=== PATIENT | female | born 1975 | race Caucasian/White ===

== ENCOUNTER 2016-03-26 16:44 | Emergency (ER) ==
[2016-03-26 16:47] VITALS: BP 149/106; TEMP 97.6; BMI 29.8
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
[2016-03-26] MEDS ORDERED: LOPRESSOR PO STA (17:05)
[2016-03-26 17:11] LABS: BASOPHILS % (AUTO) 0.4 % (0.0-3.0); EOSINOPHILS # (AUTO) 0.2 K/ul (0.0-0.7); EOSINOPHILS % (AUTO) 2.1 % (0.0-7.0); HEMATOCRIT 38.6 % (37.0-47.0); HEMOGLOBIN 13.3 g/dl (12.0-16.0); IMMATURE GRANULOCYTE % (AUTO) 0.2 % (0.0-5.0); LYMPHOCYTES # (AUTO) 3.6 K/uL (0.60-3.4); LYMPHOCYTES % (AUTO) 39.6 (10.0-50.0); MEAN CORPUSCULAR HEMOGLOBIN 29.2 pg (27.0-31.0); MEAN CORPUSCULAR HGB CONC 34.5 (31.8-35.4); MEAN CORPUSCULAR VOLUME 84.8 fl (81.0-99.0); MONOCYTES # (AUTO) 0.7 K/uL (0.4-2.0); MONOCYTES % (AUTO) 8.1 (0-10); NEUTROPHILS # (AUTO) 4.5 K/ul (2.0-6.9); NEUTROPHILS % (AUTO) 49.6; PLATELET COUNT 293 10^3/uL (140-440); RED BLOOD COUNT 4.55 10^6/ul (4.20-5.40); WHITE BLOOD COUNT 9.02 K/ul (4.6-10.2)
[2016-03-26 17:30] LABS: PARTIAL THROMBOPLASTIN TIME 39.1 SEC (23.9-40.0)
[2016-03-26 17:32] LABS: PROTHROMBIN TIME 32.6 SEC (9.3-11.0)
== END 2016-03-26 19:13 | disposition home or self-care (01) ==
LOC: EDSEX → ED 16:44
DX: R04.0 Epistaxis (principal); R79.1 Abnormal coagulation profile; Z79.01 Long term (current) use of anticoagulants; Z79.899 Other long term (current) drug therapy
CPT/HCPCS: 36415; 85025; 85610; 85730; 99283

== ENCOUNTER 2016-04-17 15:24 | Outpatient (CLI) ==
[2016-04-17 15:58] LABS: BASOPHILS % (AUTO) 0.4 % (0.0-3.0); EOSINOPHILS # (AUTO) 0.2 K/ul (0.0-0.7); EOSINOPHILS % (AUTO) 2.4 % (0.0-7.0); HEMOGLOBIN 13.8 g/dl (12.0-16.0); IMMATURE GRANULOCYTE % (AUTO) 0.1 % (0.0-5.0); LYMPHOCYTES # (AUTO) 2.3 K/uL (0.60-3.4); LYMPHOCYTES % (AUTO) 30.1 (10.0-50.0); MEAN CORPUSCULAR HEMOGLOBIN 29.8 pg (27.0-31.0); MEAN CORPUSCULAR HGB CONC 34.5 (31.8-35.4); MEAN CORPUSCULAR VOLUME 86.4 fl (81.0-99.0); MONOCYTES # (AUTO) 0.7 K/uL (0.4-2.0); MONOCYTES % (AUTO) 8.8 (0-10); NEUTROPHILS # (AUTO) 4.4 K/ul (2.0-6.9); NEUTROPHILS % (AUTO) 58.2; PLATELET COUNT 290 10^3/uL (140-440); RED BLOOD COUNT 4.63 10^6/ul (4.20-5.40); WHITE BLOOD COUNT 7.53 K/ul (4.6-10.2)
[2016-04-17 16:07] LABS: BILIRUBIN,URINE Negative (NEGATIVE); KETONES,URINE Negative (NEGATIVE); LEUKOCYTE ESTERASE ,URINE Trace (NEGATIVE); NITRITE,URINE Negative (NEGATIVE); PROTEIN,URINE Negative (NEGATIVE); URINE, BLOOD Trace-lysed (NEGATIVE)
[2016-04-17 16:15] LABS: FLU INTERNAL QC INTERNAL QC VALID; RAPID FLU A NEGATIVE (NEGATIVE); RAPID FLU B NEGATIVE (NEGATIVE)
[2016-04-17 16:17] LABS: ALBUMIN 4.2 g/dL (3.4-5.0); ALBUMIN/GLOBULIN RATIO 1.4; BILIRUBIN,TOTAL 0.54 mg/dL (0.00-1.20); BUN/CREATININE RATIO 8.53; CALCIUM 9.3 mg/dL (8.2-10.2); CREATININE 0.82 mg/dL (0.60-1.30); TOTAL PROTEIN 7.2 g/dL (6.4-8.2)
[2016-04-17 16:19] LABS: ADD URINE MICROSCOPIC YES
[2016-04-17 16:23] LABS: BACTERIA,URINE 1+ (NOT PRESENT)
== END 2016-04-17 15:25 | disposition home or self-care (01) ==
LOC: LAB 15:24
PROVIDERS: ATTEND Emergency Medicine
DX: I10 Essential (primary) hypertension (principal); R56.9 Unspecified convulsions; R04.0 Epistaxis
CPT/HCPCS: 36415; 80053; 81001; 85025; 87086; 87804

== ENCOUNTER 2016-06-22 16:32 | Emergency (ER) ==
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
[2016-06-22 17:09] VITALS: BP 122/79; TEMP 97.2; BMI 29.0
== END 2016-06-22 17:18 | disposition home or self-care (01) ==
LOC: ED 16:32
DX: S50.12XA Contusion of left forearm, initial encounter (principal); W20.8XXA Other cause of strike by thrown, projected or falling object, initial encounter
CPT/HCPCS: 99282

== ENCOUNTER 2017-06-10 07:36 | Outpatient (CLI) | END 2017-06-10 07:37 | disposition short-term general hospital (02) | LOC: AMBL 07:36 | PROVIDERS: ATTEND Internal Medicine | DX: R07.9 Chest pain, unspecified (principal); M79.605 Pain in left leg; M79.602 Pain in left arm; R00.0 Tachycardia, unspecified; Z79.01 Long term (current) use of anticoagulants; Z86.73 Personal history of transient ischemic attack (TIA), and cerebral infarction without residual deficits; Z86.79 Personal history of other diseases of the circulatory system; M54.9 Dorsalgia, unspecified; G89.29 Other chronic pain ==

== ENCOUNTER 2017-08-07 11:07 | Outpatient (CLI) ==
--- NOTE | 2017-08-07 12:04 | MAMMO ---
EXAM: Bilateral digital screening mammogram (2-D and 3-D) History: Baseline screening Findings: MLO and CC views of bilateral breasts demonstrate scattered fibroglandular breast parenchy ma. CAD was reviewed by the radiologist. Tomosynthesis was performed. There are benign bilateral b reast calcifications. There are no dominant masses, no suspicious microcalcifications and no archite ctural distortions Impression: Benign mammogram. Recommend followup routine screening mammography in 1 year. BIRADS 2
== END 2017-08-07 11:08 | disposition home or self-care (01) ==
LOC: RAD 11:07
PROVIDERS: ATTEND Internal Medicine
DX: Z12.31 Encounter for screening mammogram for malignant neoplasm of breast (principal); I10 Essential (primary) hypertension; E03.9 Hypothyroidism, unspecified; E78.5 Hyperlipidemia, unspecified; R56.9 Unspecified convulsions
CPT/HCPCS: 36415; 77067; 80053; 80061; 83036; 84439; 84443; 85025; 85610

== ENCOUNTER 2017-09-01 15:36 | Outpatient (CLI) ==
--- NOTE | 2017-09-02 08:11 | DI ---
Exam: Three views of the lumbar spine. Comparison: None available. Reason for exam: Back pain after fall. FINDINGS: No acute fracture or listhesis. The vertebral body and intervertebral body disc space hei ghts are well maintained. There is mild degenerative disease with osteophyte formation and facet hyp ertrophy. Impression: No acute fracture or listhesis in the lumbar spine with mild degenerative disease.
== END 2017-09-01 15:37 | disposition home or self-care (01) ==
LOC: RAD 15:36
PROVIDERS: ATTEND Internal Medicine
DX: M54.9 Dorsalgia, unspecified (principal); W19.XXXA Unspecified fall, initial encounter; I10 Essential (primary) hypertension; R56.9 Unspecified convulsions; E03.9 Hypothyroidism, unspecified; E78.5 Hyperlipidemia, unspecified
CPT/HCPCS: 36415; 80053; 80061; 83036; 84439; 84443; 85025; 85610

== ENCOUNTER 2018-01-01 20:05 | Emergency (ER) ==
[2018-01-01 20:10] VITALS: BP 172/102; TEMP 98.8; BMI 32.3
--- NOTE | 2018-01-01 21:43 | CT ---
EXAM: CT chest with contrast HISTORY: Supraclavicular mass TECHNIQUE: Multi-slice transaxial helical with coronal and sagittal reformed images CONTRAST: Intravenous COMPARISON: None FINDINGS: The aorta has normal caliber. The heart size is normal. An intra-atrial septal closure de vice is in place. No lymphadenopathy is appreciated in the thorax. No pericardial or pleural effusi ons are evident. The lungs are clear. The soft tissue nodule in the right lower lobe medially is 7. 6 x 7.6 mm on transaxial image 37. No other nodules or masses are appreciated. The lungs are free o f acute airspace or interstitial opacities. The hepatic attenuation is diffusely low relative to the spleen. The solid abdominal organs are othe rwise normal in their visualized portions of the upper abdomen. No supraclavicular masses are apprec iated. The bones are free of suspicious osteolytic or osteoblastic lesions. ACDF has been performed in the cervical spine. IMPRESSION: 1. No CT correlate for the patient's supraclavicular mass. 2. No acute cardiopulmonary disease. 3. Solid nodule in the right lower lobe measuring 7.6 x 7.6 mm. Please see followup recommendations below. 4. Intra-atrial septal closure device. 5. Diffuse hepatic steatosis. Comment: [employer] Society Recommendations on Incidental Solid Pulmonary Nodule Follow-up: Low risk patient: (no history of smoking, cancer, or other known risk factors) < 6mm - no follow-up needed > 6-8mm - inital at 6-12 months, then 18-24 months if no change > 8mm - Consider CT, PET/CT, or biopsy at 3 months High risk patient: (history of smoking or other risk factors) < 6mm - optional CT at 12 months if suspicious morophology or upper lobe location > 6-8mm - initial CT at 6-12 months, then CT at 18-24 months > 8mm - same as low risk
--- NOTE | 2018-01-01 21:58 | CT ---
EXAM: CT neck with contrast HISTORY: Right neck mass, supraclavicular region TECHNIQUE: Multi-slice transaxial helical images of the neck are acquired using a standard protocol following the administration of intravenous contrast. CONTRAST: Intravenous COMPARISON: None FINDINGS: The visible intracranial structures are normal. The paranasal sinuses, middle ears, and ma stoid air cells are clear. The mucosa of the aerodigestive tract is symmetric. The visible vascular structures enhance normally without evidence of hemodynamically significant stenosis. The parotid, submandibular, and thyroid glands have normal attenuation. There is prominent at the cervical weekl y regions bilaterally. There is a small lymph node in the right supraclavicular region measuring 5.2 mm. No suspicious masses are appreciated. The lung apices are free of acute airspace or interstitial opacities. No suspicious osteolytic or os teoblastic lesions are detected. ACDF has been performed in the cervical spine. There is suggestion of prior corpectomy at C6. IMPRESSION: 1. Prominent fat and supraclavicular regions. Small 5.5 mm lymph node in the right in the supraclav icular region. No suspicious masses. 2. Otherwise normal. 3. Previous ACDF and C6 corpectomy.
--- NOTE | 2018-01-01 22:06 | ED.PDOC ---
General ED Provider: Dr. HARRISON SILVEIRA-ER Chief Complaint: Neck Pain Non-Injury Stated Complaint: monae got this place in my neck Time Seen by Physician: 20:10 Mode of Arrival: Walk-In Information Source: Patient Exam Limitations: No limitations Primary Care Provider: GISELA TEMPLETON Nursing and Triage Documentation Reviewed and Agree: Yes Does patient meet sepsis criteria?: No System Inflammatory Response Syndrome: Not Applicable Sepsis Protocol: For patient's 13 years and over: Temp is 96.8 and below OR 101 and greater Pulse >90 BPM Resp >20/minute Acutely Altered Mental Status Are patient's symptoms suggestive of a new infection, such as: -Pneumonia -Skin, Soft Tissue -Endocarditis -UTI -Bone, Joint Infection -Implantable Device -Acute Abdominal Infection -Wound Infection -Meningitis -Blood Stream Catheter Infection -Unknown EENT Complaint Exam - Throat Complaint/Exam Onset/Duration: today Symptoms Are: Still present Initial Severity: Mild Current Severity: Mild Alleviating: Reports: None Associated Signs and Symptoms: Denies: Fever, Dysphagia, Drooling, Foreign body sensation, Chills, Cough, Wheezing, Hoarseness, Sinus discomfort, Nasal congestion, Difficulty breathing, Lethargy, Irritability, Decreased activity, Vomiting, Diarrhea, Decreased hearing, Ear drainage Uvula Midline: Yes Alda-tonsillar Fluctuence: No Scarlatinaform Rash Present: No Stridor Present: No Sinus Tenderness Present: No Tonsillar Hypertrophy Present: No Tonsillar Exudate Present: No Alda-tonsillar Swelling Present: No Adenopathy Present: No Splenomegaly Present: No Differential Diagnoses: Other Review of Systems - Review Of Systems Constitutional: Reports: No symptoms Eyes: Reports: No symptoms Ears, Nose, Mouth, Throat: Reports: No symptoms Respiratory: Reports: No symptoms Cardiac: Reports: No symptoms GI: Reports: No symptoms : Reports: No symptoms Musculoskeletal: Reports: No symptoms Skin: Reports: No symptoms Neurological: Reports: No symptoms Endocrine: Reports: No symptoms Hematologic/Lymphatic: Reports: No symptoms All Other Systems: Reviewed and Negative Past Medical History - Past Medical History Previously Healthy: Yes Endocrine: Reports: Hypothyroid, Dyslipidemia Cardiovascular: Reports: Hypertension, CHF Respiratory: Reports: None Hematological: Reports: Anemia, Other (factor 5 leiden factor 8) Gastrointestinal: Reports: GERD Genitourinary: Reports: None Neuro/Psych: Reports: TIA, CVA (2011), Seizure, Depression Musculoskeletal: Reports: Arthritis Cancer: Reports: None Last Menstrual Period: HYSTERECTOMY Other Pertinent Past Medical History: SVT ablation, PFO closure - Surgical History General Surgical History: Reports: Hysterectomy, , Appendectomy, Cholecystectomy, Tonsillectomy, Adenoidectomy, Orthopedic (cervical fusion x 2) , Unknown - Family History Family History: Reports: Unknown - Social History Smoking Status: Never smoker Hx Substance Use: No Alcohol Screening: None - Immunizations Tetanus Shot up to Date: Yes Physical Exam - Physical Exam Appearance: Well-appearing, No pain distress, Well-nourished Eyes: GIUSEPPE, EOMI, Conjunctiva clear ENT: Ears normal, Nose normal, Oropharynx normal Neck: Supple (note fatty prominence near supraclavicular area concerning for the patient) Respiratory: Airway patent, Breath sounds clear, Breath sounds equal, Respirations nonlabored Cardiovascular: RRR GI/: Soft Musculoskeletal: Normal strength Skin: Warm, Dry, Normal color Neurological: Sensation intact, Motor intact, Reflexes intact, Cranial nerves intact, Alert, Oriented Psychiatric: Affect appropriate, Mood appropriate Interpretation - Radiology Interpretation Radiology Interpretation By: Radiologist Exam Interpreted: CT Scan Critical Care Note - Critical Care Note Total Time (mins): 0 Course - Course Hematology/Chemistry: 01/01/18 20:37 01/01/18 20:37 Orders, Labs, Meds: Lab Review 01/01/18 01/01/18 01/01/18 20:37 20:37 20:37 WBC 8.72 RBC 4.79 Hgb 13.8 Hct 40.2 MCV 83.9 MCH 28.8 MCHC 34.3 RDW Coeff of Sharee 13.0 Plt Count 285 Immature Gran % (Auto) 0.2 Neut % (Auto) 66.4 Lymph % (Auto) 24.4 [place] % (Auto) 7.9 Eos % (Auto) 0.6 Baso % (Auto) 0.5 Immature Gran # (Auto) 0.0 Neut # (Auto) 5.8 Lymph # (Auto) 2.1 [place] # (Auto) 0.7 Eos # (Auto) 0.1 Baso # (Auto) 0.0 Sodium 139.1 Potassium 3.92 Chloride 102.5 Carbon Dioxide 28.2 Anion Gap 12.32 BUN 8.5 Creatinine 0.83 Estimated GFR (MDRD) 76.00 BUN/Creatinine Ratio 10.24 Glucose 167.3 H Calcium 9.41 Total Bilirubin 0.34 AST 61.4 H ALT 59.0 H Alkaline Phosphatase 89.5 Total Protein 7.83 Albumin 4.82 Globulin 3.01 Albumin/Globulin Ratio 1.60 TSH 0.957 Orders Category Date Time Status NPO REMINDER: IMAGING ONCE CARE 01/01/18 20:23 Completed IV [ED IV/MEDIPORT/POWERPORT] .ONCE EMERGENCY 01/01/18 20:23 Active CBC W/ AUTO DIFF Stat LAB 01/01/18 20:37 Completed COMPREHENSIVE METABOLIC PANEL Stat LAB 01/01/18 20:37 Completed TSH [THYROID STIMULATING HORMONE] Stat LAB 01/01/18 20:37 Completed 0.9 % Sodium Chloride [Saline Flush] MEDS 01/01/18 20:23 Ordered 1 syr IVF PRN PRN CT CHEST W/CONTRAST Stat RADS 01/01/18 20:[address] SOFT TISSUE NECK W/CONTRAST Stat RADS 01/01/18 20:23 Completed Medications Generic Name Dose Route Start Last Admin Trade Name Freq PRN Reason Stop Dose Admin Sodium Chloride 1 syr 01/01/18 20:23 Saline Flush IVF PRN PRN To flush IV Vital Signs: Temp Pulse Resp BP Pulse Ox 01/01/18 20:06 98.8 F 85 18 172/102 H 95 Departure - Departure Time of Disposition: 22:06 Disposition: HOME SELF-CARE Discharge Problem: Supraclavicular fossa fullness, Lung nodule Instructions: Soft Tissue Mass (ED) Condition: Good Pt referred to PMD for follow-up: Yes IPMP verified?: No Additional Instructions: talk with dr templeton regarding lung nodule Allergies/Adverse Reactions: Allergies ciprofloxacin [From Cipro] Adverse Reaction (Verified 01/01/18 20:10) hydrocodone Adverse Reaction (Verified 01/01/18 20:10) meperidine HCl [From Demerol] Adverse Reaction (Verified 01/01/18 20:10) oxycodone Adverse Reaction (Verified 01/01/18 20:10) Home Medications: Ambulatory Orders Atorvastatin Calcium [Lipitor] 20 mg PO DAILY 05/03/15 Levothyroxine Sodium [Synthroid] 88 mcg PO DAILY 05/03/15 Warfarin Sodium 5 mg PO QPM 05/03/15 Metoprolol Tartrate [Lopressor] 50 mg PO BID 12/07/15 Disposition Discussed With: Patient, Family
== END 2018-01-01 22:17 | disposition home or self-care (01) ==
LOC: ED 20:05
DX: R22.1 Localized swelling, mass and lump, neck (principal); R91.1 Solitary pulmonary nodule; I10 Essential (primary) hypertension; E03.9 Hypothyroidism, unspecified; E78.5 Hyperlipidemia, unspecified; D68.51 Activated protein C resistance; Z86.73 Personal history of transient ischemic attack (TIA), and cerebral infarction without residual deficits; Z79.01 Long term (current) use of anticoagulants; Z79.899 Other long term (current) drug therapy
CPT/HCPCS: 36415; 80053; 84443; 85025; 99283

== ENCOUNTER 2018-01-29 09:45 | Outpatient (CLI) ==
--- NOTE | 2018-01-29 10:31 | US ---
EXAM: Ultrasound chest wall/upper back. HISTORY: Right supraclavicular mass. FINDINGS: Henson-scale ultrasound, color Doppler imaging was performed in the region of interest descr ibed as the right supraclavicular area. No regional fluid collections or masses were identified. No calcifications. The visualized vessels appeared grossly normal IMPRESSION: 1. No sonographic abnormalities identified in the region of interest.
== END 2018-01-29 09:46 | disposition home or self-care (01) ==
LOC: RAD 09:45
PROVIDERS: ATTEND Internal Medicine
DX: R22.2 Localized swelling, mass and lump, trunk (principal)

== ENCOUNTER 2018-03-25 14:28 | Inpatient (IN) ==
--- NOTE | 2018-03-25 15:09 | ED.PDOC ---
General ED Provider: Dr. HARRISON THOMAS Chief Complaint: Palpitations Stated Complaint: Episodes of accelerated heart rate, chest palpitation , dyspnea. Having lt calf pain. Hx prev CVA Time Seen by Physician: 14:40 Mode of Arrival: Walk-In Information Source: Patient Primary Care Provider: GISELA TEMPLETON Nursing and Triage Documentation Reviewed and Agree: Yes Does patient meet sepsis criteria?: No System Inflammatory Response Syndrome: Pulse >90 BPM Sepsis Protocol: For patient's 13 years and over: Temp is 96.8 and below OR 101 and greater Pulse >90 BPM Resp >20/minute Acutely Altered Mental Status Are patient's symptoms suggestive of a new infection, such as: -Pneumonia -Skin, Soft Tissue -Endocarditis -UTI -Bone, Joint Infection -Implantable Device -Acute Abdominal Infection -Wound Infection -Meningitis -Blood Stream Catheter Infection -Unknown Cardiovascular Complaint Exam - Palpitations Complaint/Exam Onset/Duration: 24hrs Symptoms Are: Still present Timing: Intermittent Initial Severity: Moderate Current Severity: Moderate Character: Reports: Fast, Pounding Aggravating: Reports: Exertion, Position Alleviating: Reports: Rest Associated Signs and Symptoms: Reports: Lightheadedness, Dizziness, Syncope ( near syncope), Diaphoresis Related History: Similar episode Related Surgical History: Reports: None (prev ablation tx) Pulmonary Embolism Risk Factors: Reports: None Atrial Fibrillation Risk Factors: Reports: None Thyroid Exam: Normal Differential Diagnoses: Paroxysmal SVT Review of Systems - Review Of Systems Constitutional: Reports: Weakness Eyes: Reports: No symptoms Ears, Nose, Mouth, Throat: Reports: No symptoms Respiratory: Reports: Short of air (exertional) Cardiac: Reports: Chest pain, Palpitations, Syncope GI: Reports: No symptoms : Reports: No symptoms Musculoskeletal: Reports: No symptoms Skin: Reports: No symptoms Neurological: Reports: No symptoms Endocrine: Reports: No symptoms Hematologic/Lymphatic: Reports: No symptoms All Other Systems: Reviewed and Negative Past Medical History - Past Medical History Previously Healthy: Yes Endocrine: Reports: Hypothyroid, Dyslipidemia Cardiovascular: Reports: Hypertension, CHF Respiratory: Reports: None Hematological: Reports: Anemia, Other (factor 5 leiden factor 8) Gastrointestinal: Reports: GERD Genitourinary: Reports: None Neuro/Psych: Reports: TIA, CVA (2010), Seizure, Depression Musculoskeletal: Reports: Arthritis Cancer: Reports: None Last Menstrual Period: HYSTERECTOMY Other Pertinent Past Medical History: SVT ablation, PFO closure - Surgical History General Surgical History: Reports: Hysterectomy, , Appendectomy, Cholecystectomy, Tonsillectomy, Adenoidectomy, Orthopedic (cervical fusion x 2) , Unknown - Family History Family History: Reports: Unknown - Social History Smoking Status: Never smoker Hx Substance Use: No Alcohol Screening: None - Immunizations Tetanus Shot up to Date: No Physical Exam - Physical Exam Appearance: Ill-appearing, No pain distress, Well-nourished, Obese Ill-appearing: Moderate Pain Distress: None Eyes: GIUSEPPE, EOMI, Conjunctiva clear ENT: Ears normal, Nose normal, Oropharynx normal Respiratory: Airway patent, Breath sounds clear, Breath sounds equal, Respirations nonlabored Cardiovascular: RRR, Pulses normal, No rub, No murmur GI/: Soft, Nontender, No masses, Bowel sounds normal, No Organomegaly Musculoskeletal: Normal strength, ROM intact, No edema, No calf tenderness Skin: Warm, Dry, Normal color Neurological: Sensation intact, Motor intact, Reflexes intact, Cranial nerves intact, Alert, Oriented Psychiatric: Affect appropriate, Mood appropriate Interpretation - Radiology Interpretation Radiology Interpretation By: Radiologist Radiology Results: Negative (doppler flow results reviewed and were negative for dvt) Exam Interpreted: CXR (reviewed cxr-neg acute findings) Re-Evaluation - Re-Evaluation Time of Re-Evaluation: 17:00 Status: Improved Vital Signs Stable: Yes Appearance: NAD Lungs: Clear Skin: Warm and Dry Neuro: Alert and Oriented X3 CV: RRR Critical Care Note - Critical Care Note Total Time (mins): 120 Course - Course Hematology/Chemistry: 03/25/18 15:20 03/25/18 15:20 Orders, Labs, Meds: Lab Review 03/25/18 03/25/18 03/25/18 15:20 15:20 15:20 WBC 6.58 RBC 5.01 Hgb 14.1 Hct 41.9 MCV 83.6 MCH 28.1 MCHC 33.7 RDW Coeff of Sharee 13.4 Plt Count 277 Immature Gran % (Auto) 0.3 Neut % (Auto) 54.2 Lymph % (Auto) 33.9 [place] % (Auto) 9.3 Eos % (Auto) 1.8 Baso % (Auto) 0.5 Immature Gran # (Auto) 0.0 Neut # (Auto) 3.6 Lymph # (Auto) 2.2 [place] # (Auto) 0.6 Eos # (Auto) 0.1 Baso # (Auto) 0.0 PT INR D-Dimer (Manual) 275.09 Sodium 139.5 Potassium 3.44 L Chloride 103.7 Carbon Dioxide 26.3 Anion Gap 12.94 BUN 4.5 L Creatinine 0.67 Estimated GFR (MDRD) 97.00 BUN/Creatinine Ratio 6.71 Glucose 96.3 Calcium 9.63 Magnesium 1.89 Total Bilirubin 1.08 AST 46.6 H ALT 41.7 H Alkaline Phosphatase 107.1 Total Creatine Kinase 141.2 H CK-MB (CK-2) 0.703 CK-MB (CK-2) % 0.4900 Troponin I 0.013 Total Protein 7.85 Albumin 4.81 Globulin 3.04 Albumin/Globulin Ratio 1.58 TSH Urine Color Urine Clarity Urine pH Ur Specific [place] Urine Protein Urine Glucose (UA) Urine Ketones Urine Blood Urine Nitrite Urine Bilirubin Urine Urobilinogen Ur Leukocyte Esterase Urine Microscopic RBC Ur Squamous Epith Cells Urine Opiates Screen Ur Oxycodone Screen Urine Methadone Screen Ur Propoxyphene Screen Ur Barbiturates Screen U Tricyclic Antidepress Ur Phencyclidine Scrn Ur Amphetamine Screen U Methamphetamines Scrn U Benzodiazepines Scrn Urine Cocaine Screen U Cannabinoids Screen 03/25/18 03/25/18 03/25/18 15:20 15:20 15:59 WBC RBC Hgb Hct MCV MCH MCHC RDW Coeff of Sharee Plt Count Immature Gran % (Auto) Neut % (Auto) Lymph % (Auto) [place] % (Auto) Eos % (Auto) Baso % (Auto) Immature Gran # (Auto) Neut # (Auto) Lymph # (Auto) [place] # (Auto) Eos # (Auto) Baso # (Auto) PT 13.0 H INR 1.31 D-Dimer (Manual) Sodium Potassium Chloride Carbon Dioxide Anion Gap BUN Creatinine Estimated GFR (MDRD) BUN/Creatinine Ratio Glucose Calcium Magnesium Total Bilirubin AST ALT Alkaline Phosphatase Total Creatine Kinase CK-MB (CK-2) CK-MB (CK-2) % Troponin I Total Protein Albumin Globulin Albumin/Globulin Ratio TSH 0.851 Urine Color Urine Clarity Urine pH Ur Specific [place] Urine Protein Urine Glucose (UA) Urine Ketones Urine Blood Urine Nitrite Urine Bilirubin Urine Urobilinogen Ur Leukocyte Esterase Urine Microscopic RBC Ur Squamous Epith Cells Urine Opiates Screen Negative Ur Oxycodone Screen Negative Urine Methadone Screen Negative Ur Propoxyphene Screen Negative Ur Barbiturates Screen Negative U Tricyclic Antidepress Negative Ur Phencyclidine Scrn Negative Ur Amphetamine Screen Negative U Methamphetamines Scrn Negative U Benzodiazepines Scrn Negative Urine Cocaine Screen Negative U Cannabinoids Screen Negative 03/25/18 15:59 WBC RBC Hgb Hct MCV MCH MCHC RDW Coeff of Sharee Plt Count Immature Gran % (Auto) Neut % (Auto) Lymph % (Auto) [place] % (Auto) Eos % (Auto) Baso % (Auto) Immature Gran # (Auto) Neut # (Auto) Lymph # (Auto) [place] # (Auto) Eos # (Auto) Baso # (Auto) PT INR D-Dimer (Manual) Sodium Potassium Chloride Carbon Dioxide Anion Gap BUN Creatinine Estimated GFR (MDRD) BUN/Creatinine Ratio Glucose Calcium Magnesium Total Bilirubin AST ALT Alkaline Phosphatase Total Creatine Kinase CK-MB (CK-2) CK-MB (CK-2) % Troponin I Total Protein Albumin Globulin Albumin/Globulin Ratio TSH Urine Color Yellow Urine Clarity Clear Urine pH 7.0 Ur Specific [place] 1.010 Urine Protein Negative Urine Glucose (UA) Negative Urine Ketones Negative Urine Blood Trace-intact Urine Nitrite Negative Urine Bilirubin Negative Urine Urobilinogen 0.2 Ur Leukocyte Esterase Negative Urine Microscopic RBC 0-2 Ur Squamous Epith Cells 2-5 Urine Opiates Screen Ur Oxycodone Screen Urine Methadone Screen Ur Propoxyphene Screen Ur Barbiturates Screen U Tricyclic Antidepress Ur Phencyclidine Scrn Ur Amphetamine Screen U Methamphetamines Scrn U Benzodiazepines Scrn Urine Cocaine Screen U Cannabinoids Screen Orders Category Date Time Status EKG-(ED ONLY) Stat CARDIO 03/25/18 15:04 Completed IV [ED IV/MEDIPORT/POWERPORT] .ONCE EMERGENCY 03/25/18 15:04 Active CBC W/ AUTO DIFF Stat LAB 03/25/18 15:20 Completed CMP [COMPREHENSIVE METABOLIC PANEL] Stat LAB 03/25/18 15:20 Completed CPK [CREATINE KINASE] Stat LAB 03/25/18 15:20 Completed D-DIMER Stat LAB 03/25/18 15:20 Completed MAGNESIUM Stat LAB 03/25/18 15:20 Completed PT WITH INR Stat LAB 03/25/18 15:20 Completed TROPONIN I Stat LAB 03/25/18 15:20 Completed TSH [THYROID STIMULATING HORMONE] Stat LAB 03/25/18 15:20 Completed UA [URINALYSIS C & S IF INDICATED] Stat LAB 03/25/18 15:59 Completed URINE DRUG SCREEN (RAPID FOR ED) [DRUG SCREEN, URINE, LAB 03/25/18 15:59 Completed RAPID] Stat 0.9 % Sodium Chloride [Saline Flush] MEDS 03/25/18 15:04 Active 1 syr IVF PRN PRN CHEST, 2 VIEWS PA & LAT Stat RADS 03/25/18 15:05 Completed U/S VENOUS SCAN LT LEG Stat RADS 03/25/18 15:06 Completed Medications Generic Name Dose Route Start Last Admin Trade Name Freq PRN Reason Stop Dose Admin Sodium Chloride 1 syr 03/25/18 15:04 Saline Flush IVF PRN PRN To flush IV Vital Signs: Temp Pulse Resp BP Pulse Ox 03/25/18 14:28 98.1 F 123 H 18 169/118 H 97 LUIS Risk Score LUIS Risk Score: Risk Score Odds of by 30D 0 0.1 (0.1-0.2) 1 0.3 (0.2-0.3) 2 0.4 (0.3-0.5) 3 0.7 (0.6-0.9) 4 1.2 (1.0-1.5) 5 2.2 (1.9-2.6) 6 3.0 (2.5-3.6) 7 4.8 (3.8-6.1) Departure - Departure Time of Disposition: 17:00 Disposition: ADMITTED INPATIENT Discharge Problem: Paroxysmal SVT (supraventricular tachycardia) Condition: Fair Pt referred to PMD for follow-up: Yes (dr templeton) MP verified?: No Additional Instructions: Admit for eval and treatement Allergies/Adverse Reactions: Allergies ciprofloxacin [From Cipro] Adverse Reaction (Verified 03/25/18 14:30) hydrocodone Adverse Reaction (Verified 03/25/18 14:30) meperidine HCl [From Demerol] Adverse Reaction (Verified 03/25/18 14:30) oxycodone Adverse Reaction (Verified 03/25/18 14:30) Home Medications: Ambulatory Orders Atorvastatin Calcium [Lipitor] 20 mg PO DAILY 05/03/15 Levothyroxine Sodium [Synthroid] 88 mcg PO DAILY 05/03/15 Warfarin Sodium 5 mg PO QPM 05/03/15 Metoprolol Tartrate [Lopressor] 50 mg PO BID 12/07/15 Disposition Discussed With: Patient, Family (discussed with dr templeton. administer cardizem 60 mg bid and admit)
--- NOTE | 2018-03-25 15:38 | DI ---
EXAM: Two views of the chest. History: Palpitations and dyspnea. Findings: Heart size is normal. No focal consolidation. No appreciable pleural fluid and no pneumo thorax. No acute osseous abnormalities. Intra-atrial septal closure device. Postsurgical changes o f the cervical spine. Cholecystectomy clips. Impression: No acute cardiopulmonary process
--- NOTE | 2018-03-25 15:54 | US ---
EXAM: ULTRASOUND LOWER EXTREMITY VENOUS DOPPLER EXAM HISTORY: Leg pain. FINDINGS: Left lower extremity venous Doppler exam. Real time finn-scale, Doppler spectral analysis and color-flow Doppler imaging performed. The veins targeted for evaluation include the common femo ral, greater saphenous, profundus, femoral, popliteal, peroneal, anterior tibial and posterior tibial . The evaluated veins demonstrated normal spontaneous flow and compression without evidence of thr ombosis. IMPRESSION: No venous thrombosis identified within the areas evaluated.
[2018-03-25] MEDS ORDERED: LOVENOX SUBCUT STA (17:23)
[2018-03-25] MEDS ORDERED: COUMADIN PO SCH (17:30)
[2018-03-25] MEDS ORDERED: COUMADIN ONE (17:50)
[2018-03-25] MEDS: CARDIZEM PO SCH ×2 (17:54→20:58)
[2018-03-25] MEDS: LIPITOR PO SCH (17:54)
[2018-03-25 18:10] VITALS: BMI 32.1
[2018-03-25] MEDS ORDERED: NEURONTIN PO PRN (18:33)
[2018-03-25] MEDS ORDERED: COUMADIN PO STA (18:34)
[2018-03-25] MEDS: ZANAFLEX PO SCH (20:55)
[2018-03-25] MEDS: LOPRESSOR PO SCH (20:55)
--- NOTE | 2018-03-26 08:34 | PCM.PROG ---
Attending Provider: ATTENDING PROVIDER: Dr. GISELA HAAS This patient is seen with Evie Prieto, Nurse Practitioner. DATE OF SERVICE: 03/26/18 SUBJECTIVE: This 43 year old WHITE/ F was hospitalized 03/25/18. The patient is resting comfortably. She is still having episodes of tachycardia, fastest being 128. The Emergency Department physician felt like she had episodes of SVT in the ED. The patient is in no distress, asymptomatic. REVIEW OF SYSTEMS: CONSTITUTIONAL: No night sweats. No fatigue, malaise, lethargy. No fever or chills. HEENT: Eyes: No visual changes. No eye pain. No eye discharge. ENT: No runny nose. No epistaxis. No sinus pain. No odynophagia. No congestion. RESPIRATORY: No cough, no congestion. No hemoptysis. No shortness of breath. CARDIOVASCULAR: No angina symptoms. No CHF symptoms. No atypical chest pain for CAD. No palpitations. No orthopnea.. GASTROINTESTINAL: No abdominal pain. No nausea or vomiting. No diarrhea or constipation. No hematemesis. No hematochezia. GENITOURINARY: No urgency. No frequency. No dysuria. No hematuria. No obstructive symptoms. No discharge. No pain. No significant abnormal bleeding. MUSCULOSKELETAL: Generalized pain. NEUROLOGICAL: Awake, alert, oriented to time, place and person. No headache. No neck pain. No syncope. No seizures. No dizziness. PSYCHIATRIC: Not anxious. No depression. No suicidal thoughts. No homicidal thoughts. SKIN: No rash. No lesions. No wounds. ENDOCRINE: No unexplained weight loss. No weight gain. HEMATOLOGIC/LYMPHATIC: No anemia. No purpura. No petechiae. No prolonged or excessive bleeding. No palpable lymph nodes. PHYSICAL EXAMINATION: GENERAL: The patient is awake, alert and oriented, lying in bed in no distress. VITAL SIGNS: Temperature 98 F, Pulse 70, Respiratory Rate 16, BP 110/76, Pulse Ox 99% HEENT: Head normocephalic, atraumatic. Eyes: Extraocular muscles are intact. Pupils are equal, round and reactive to light and accommodation. Ears: No lesions. Nose appeared normal. Throat: No exudate or erythema. NECK: Supple. No JVD, no carotid bruit. No lymphadenopathy or thyromegaly. LUNGS: Diminished breath sounds. Clear to auscultation. Percussion note normal. Chest symmetrical. HEART: Positive for tachycardia. S1, S2, no S3. No murmurs. No cyanosis or clubbing. No ascites. Pulses: Dorsalis pedis and posterior tibial pulses +1 to +2 both sides. ABDOMEN: Soft. Non-tender. Bowel sounds active. No CVA tenderness. No mass felt. EXTREMITIES: No edema. Full range of motion of all extremities, equal. NEUROLOGIC: No focal deficit. Cranial nerves II through XII are grossly intact. No headache, no double vision or headache. SKIN: Not dry. Intact. Turgor-normal. LYMPHATIC: No palpable lymph nodes/no lymphedema. MUSCULOSKELETAL: Normal joints with no swelling. Muscle tone is normal. LAB REVIEW: 03/26/18 06:45 03/26/18 06:45 03/26/18 06:45: Sodium 136.7, Potassium 3.85, Chloride 101.6, Carbon Dioxide 29.9, Anion Gap 9.05, BUN 6.4 L, Creatinine 0.72, Estimated GFR (MDRD) 89.00, BUN/Creatinine Ratio 8.88, Glucose 104.8, Calcium 9.48, Total Bilirubin 0.58, AST 38.1 H, ALT 38.8 H, Alkaline Phosphatase 95.7, Total Protein 7.22, Albumin 4.47, Globulin 2.75, Albumin/Globulin Ratio 1.62 03/26/18 06:45: WBC 6.46, RBC 4.77, Hgb 13.7, Hct 40.6, MCV 85.1, MCH 28.7, MCHC 33.7, RDW Coeff of Sharee 13.4, Plt Count 248, Immature Gran % (Auto) 0.2, Neut % (Auto) 48.5, Lymph % (Auto) 40.2, [place] % (Auto) 8.0, Eos % (Auto) 2.5, Baso % (Auto) 0.6, Immature Gran # (Auto) 0.0, Neut # (Auto) 3.1, Lymph # (Auto ) 2.6, [place] # (Auto) 0.5, Eos # (Auto) 0.2, Baso # (Auto) 0.0 03/26/18 04:20: PT 12.0 H, INR 1.21 03/25/18 15:59: Urine Color Yellow, Urine Clarity Clear, Urine pH 7.0, Ur Specific [place] 1.010, Urine Protein Negative, Urine Glucose (UA) Negative, Urine Ketones Negative, Urine Blood Trace-intact, Urine Nitrite Negative, Urine Bilirubin Negative, Urine Urobilinogen 0.2, Ur Leukocyte Esterase Negative, Urine Microscopic RBC 0-2, Ur Squamous Epith Cells 2-5 03/25/18 15:59: Urine Opiates Screen Negative, Ur Oxycodone Screen Negative, Urine Methadone Screen Negative, Ur Propoxyphene Screen Negative, Ur Barbiturates Screen Negative, U Tricyclic Antidepress Negative, Ur Phencyclidine Scrn Negative, Ur Amphetamine Screen Negative, U Methamphetamines Scrn Negative, U Benzodiazepines Scrn Negative, Urine Cocaine Screen Negative, U Cannabinoids Screen Negative 03/25/18 15:20: TSH 0.851 03/25/18 15:20: PT 13.0 H, INR 1.31 03/25/18 15:20: D-Dimer (Manual) 275.09 03/25/18 15:20: Sodium 139.5, Potassium 3.44 L, Chloride 103.7, Carbon Dioxide 26.3, Anion Gap 12.94, BUN 4.5 L, Creatinine 0.67, Estimated GFR (MDRD) 97.00, BUN/Creatinine Ratio 6.71, Glucose 96.3, Calcium 9.63, Magnesium 1.89, Total Bilirubin 1.08, AST 46.6 H, ALT 41.7 H, Alkaline Phosphatase 107.1, Total Creatine Kinase 141.2 H, CK-MB (CK-2) 0.703, CK-MB (CK-2) % 0.4900, Troponin I 0.013, Total Protein 7.85, Albumin 4.81, Globulin 3.04, Albumin/Globulin Ratio 1.58 03/25/18 15:20: WBC 6.58, RBC 5.01, Hgb 14.1, Hct 41.9, MCV 83.6, MCH 28.1, MCHC 33.7, RDW Coeff of Sharee 13.4, Plt Count 277, Immature Gran % (Auto) 0.3, Neut % (Auto) 54.2, Lymph % (Auto) 33.9, [place] % (Auto) 9.3, Eos % (Auto) 1.8, Baso % (Auto) 0.5, Immature Gran # (Auto) 0.0, Neut # (Auto) 3.6, Lymph # (Auto ) 2.2, [place] # (Auto) 0.6, Eos # (Auto) 0.1, Baso # (Auto) 0.0 ASSESSMENT: Please see below. 1. Tachycardia 2. Hypokalemia - improved 3. History of SVT 4. Generalized pain 5. Fibromyalgia 6. History of CVA on Coumadin PLAN: 1. Echocardiogram today 2. Continue telemetry 3. Coumadin 8 mg today Plan and coordination of the patient's care discussed in the presence of Railroad Detective and nurse. CONDITION: Stable SCRIBED BY: KATELYNN SHANNON Acute Care Nurse scribed while in presence of service performed by Dr. Haas/Evie Prieto APRN on 03/26/18 ([id number])
[2018-03-26] MEDS: SYNTHROID PO SCH (09:22)
[2018-03-26] MEDS: LOPRESSOR PO SCH ×2 (09:22→21:19)
[2018-03-26] MEDS: LIPITOR PO SCH (09:22)
[2018-03-26] MEDS ORDERED: COUMADIN PO ONE (17:00)
[2018-03-26] MEDS ORDERED: NON-FORMULARY MEDICATION (Warfarin Sodium [Coumadin] 4 MG) PO SCH (17:00)
[2018-03-26] MEDS ORDERED: COUMADIN ONE ×2 (17:50)
[2018-03-26] MEDS: ZANAFLEX PO SCH (21:19)
[2018-03-27] MEDS: SYNTHROID PO SCH (05:41)
[2018-03-27] MEDS: LIPITOR PO SCH (08:30)
[2018-03-27] MEDS: LOPRESSOR PO SCH ×2 (08:30→20:28)
[2018-03-27] MEDS: CARDIZEM PO SCH ×2 (11:53→20:28)
[2018-03-27] MEDS ORDERED: COUMADIN PO SCH (17:00)
[2018-03-27] MEDS ORDERED: COUMADIN PO ONE (17:00)
[2018-03-27] MEDS: ZANAFLEX PO SCH (20:28)
[2018-03-28] MEDS: SYNTHROID PO SCH (05:44)
[2018-03-28] MEDS: LIPITOR PO SCH (08:19)
[2018-03-28] MEDS: LOPRESSOR PO SCH (08:19)
[2018-03-28] MEDS: CARDIZEM PO SCH (08:19)
[2018-03-28 11:00] VITALS: BP 110/72; TEMP 98.5
--- NOTE | 2018-03-29 09:27 | PN ---
DATE OF SERVICE: 03/26/18 SUBJECTIVE: The patient was seen and examined with Nurse Practitioner. The patient does not have that much palpitation during the monitoring period. Over night didn't see any SVT and the patient is going to have an Holter Monitor. The patient had echocardiogram done. The patient Holter Monitor applied. The patient had one episode of tachycardiac with the rate of 140 per minute and able to take strips out of telemetry area. The patient already has Holter Monitor applied so we will try to evaluate her plus the Holter Monitor is taken off tomorrow. So far the patient's cardiovascular status is stable. Echo showed LVH with normal LV contractility. CONDITION: Stable. The patient already has an appointment with Dr. Berry, May 2018 at [facility] where she had her ablation done. TIME SPENT: More than 30 minutes. Plan and coordination of the patient's care discussed in the presence of nurse. VENKATESH
--- NOTE | 2018-03-29 09:31 | ECHO2D ---
Date of Exam: 03/26/18 Ordering Physician: DR. GISELA HAAS Room #: 118 Reason for Echo: HX SVT-ABLATION, SOB, FATIGUE, PALPITATIONS M-Mode Normal Adult Results LV Dimensions Normal Adult Results AoV Opening excursions >1.6 >1.6 LVEDD-base- 3.5-5.8 4.4 Ao root dimensions 2.0-3.7 3.2 LVESD-base- 3.1-4.6 L. Atrium dimensions 1.9-3.8 3.9 Post. Wall thickness 0.8-1.1 1.0 IV septum (thickness) 0.7-1.2 1.3 Post. Wall excursion 0.72-1.3 NORMAL Septal motion NORMAL Systolic motion R. Ventricular cavity 1.5-2.0 NORMAL LVEF 60% 64% Paradoxical septal wall motion NORMAL 2-D : 2-D M Mode Echocardiogram was performed using apical four chamber and left parasternal long and short axis views. Mitral, tricuspid and aortic valves appear to be normal. Contractility of the left ventricle seems to be normal, so is the cavity size. Left atrial cavity size and aortic root appear to be normal. There is no pericardial effusion. There is no thrombus noted in the left ventricular or left aortic cavity. No mitral valve prolapse noted. M-MODE: MV: NORMAL AV: NORMAL TV: NORMAL PV: CHAMBER SIZE: NORMAL WALL MOTION: NORMAL PERICARDIUM: NORMAL INTERPRETATION: 1. LEFT VENTRICULAR HYPERTROPHY--NORMAL LEFT ATRIAL SIZE 2. NORMAL LEFT VENTRICULAR CONTRACTILITY 3. NORMAL VALVES MTDD
--- NOTE | 2018-03-29 09:36 | HOLTER ---
PATIENT INFORMATION AND COMMENTS Attending Physician: DR. GISELA HAAS Indications: HX SVT, PALPITATIONS, SOB, FATIGUE __ Patient Medications: GABAPENTIN, TIZANIDINE, COUMADIN, SYNTHROID, METOPROLOL, LIPITOR, NEURONTIN __ Pre-procedure Summary: Protocol: Standard Heart Rate Started: 03/26/18826 Minimum: 46 BPM Weight: 199 LBS Ended: 03/27/18826 Maximum: 157 BPM Height: 66" Duration: 24 HOURS Average: 76 BPM _ INTERPRETATIONS/OBSERVATIONS: 1. BASIC RHYTHM: SINUS, RATE 46 BPM TO 157 BPM, AVERAGE 75 BPM 2. RARE PAC'S 3. ONE EPISODE OF SVT VS SINUS TACHYCARDIA WITH RATE 145 BPM TO [address]-T WAVE CHANGES FROM BASELINE 5. ACTIVITY LOG NOT MAINTAINED MTDD
--- NOTE | 2018-03-29 10:17 | PN ---
DATE OF SERVICE: 03/25/18 SUBJECTIVE: The patient was hospitalized today after being seen in the office with complaint of having palpitations. The patient's pulse rate was noted to be 154 and she sat for her vitals. Oxygen saturation was 98%. The patient has been having palpitation off and on for past couple of days along with her left leg pain. The patient has history of neurological disorder which makes her prone to having blood clots and she has been on Coumadin. 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 The patient was then advised to go to the emergency room for further work up in a way to rule out pulmonary embolism and DVT. The patient left upper extremity scan was negative. Also her D -Dimer was normal. EKG showed sinus rhythm with rate of 90 per minute but on Telemetry she had paroxysmal SVT according to the ER doctor. The patient has been hospitalized. Telemetry monitoring. She has been on Metoprolol 50mg twice a day and Cardizem 60mg twice a day will be added. The patient's over all otherwise condition is stable. She has fibromyalgia with generalized aches and pains. REVIEW OF SYSTEMS: CONSTITUTIONAL: No night sweats. Fatigue and weakness. No fever or chills. HEENT: Eyes: No visual changes. No eye pain. No eye discharge. ENT: No runny nose. No epistaxis. No sinus pain. No sore throat. No odynophagia. No congestion. RESPIRATORY: No cough, no congestion. No hemoptysis. No shortness of breath. CARDIOVASCULAR: No angina symptoms. No CHF symptoms. No atypical chest pain for CAD. No palpitations. No PND. No orthopnea. Palpitations off and on. GASTROINTESTINAL: No abdominal pain. No nausea or vomiting. No diarrhea or constipation. No hematemesis. No hematochezia. GENITOURINARY: No urgency. No frequency. No dysuria. No hematuria. No obstructive symptoms. No discharge. No pain. No significant abnormal bleeding. MUSCULOSKELETAL: No musculoskeletal pain; no joint swelling. Generalized aches and pain consistent with fibromyalgia. The patient has left leg pain more or less disabling. NEUROLOGICAL: No headache. No neck pain. No syncope. No seizures. No dizziness. PSYCHIATRIC: Not anxious. No depression. No suicidal thoughts. No homicidal thoughts. SKIN: No rash. No lesions. No wounds. ENDOCRINE: No unexplained weight loss. No weight gain. HEMATOLOGIC/LYMPHATIC: No anemia. No purpura. No petechiae. No prolonged or excessive bleeding. No palpable lymph nodes. PHYSICAL EXAMINATION: GENERAL: The patient is oriented to time, place and person. HEENT: Head normocephalic, atraumatic. Eyes: Extraocular muscles are intact. Pupils are equal, round and reactive to light and accommodation. Ears: No lesions. Nose appeared normal. Throat: No exudate or erythema. NECK: Supple. No JVP, no carotid bruit. No lymphadenopathy or thyromegaly. LUNGS: Decreased breath sounds but clear to auscultation. Percussion note normal. Chest symmetrical. HEART: S1, S2, no S3. No murmurs. No cyanosis or clubbing. No ascites. Pulses: Dorsalis pedis and posterior tibial pulses +2 bilaterally. Tachycardia noted when I examined her in the office. ABDOMEN: Soft. Nontender. Bowel sounds active. No CVA tenderness. No mass felt. EXTREMITIES: No edema. Full range of motion of all extremities, equal. Calf muscles are nontender. NEUROLOGIC: No focal deficit. Cranial nerves II through XII are grossly intact. No headache, no double vision or headache. SKIN: Not dry. Intact. Turgor - normal. LYMPHATIC: No palpable lymph nodes/no lymphedema. MUSCULOSKELETAL: Normal joints with no swelling. Muscle tone is normal. ASSESSMENT: 1. Palpitations 2. Chest discomfort 3. History of SVT status post ablation by Dr. Berry 4. 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 PLAN: 1. The patient will undergo echocardiogram to evaluate LV function at valvular functions. 2. Stress test with stress echo. TIME SPENT: More than 30 minutes. Plan and coordination of the patient's care discussed in the presence of nurse. VENKATESH
--- NOTE | 2018-03-29 10:27 | PN ---
DATE OF SERVICE: 03/27/18 SUBJECTIVE: 43 year old white female hospitalized with possibility of SVT. The patient had ablation done by Dr. Berry at [place] in 2013. She has been doing well since then. The patient is on Coumadin because of hypercoagulable status. In any care the patient's condition is stable and her venous scan was negative. Holter Monitor was reviewed by me today and looks more like patient had sinus tachycardia but SVT can no be ruled out. The patient is up and about. Telemetry strips examined which were done a couple a days ago which again shows possibility of SVT with rate of 160 but sinus tachycardia is a strong possibility. Sinus tachycardia is very likely possibility. REVIEW OF SYSTEMS: CONSTITUTIONAL: No night sweats. No fatigue, malaise, lethargy. No fever or chills. HEENT: Eyes: No visual changes. No eye pain. No eye discharge. ENT: No runny nose. No epistaxis. No sinus pain. No sore throat. No odynophagia. No congestion. RESPIRATORY: No cough, no congestion. No hemoptysis. No shortness of breath. CARDIOVASCULAR: No angina symptoms. No CHF symptoms. No atypical chest pain for CAD. No palpitations. No PND. No orthopnea. GASTROINTESTINAL: No abdominal pain. No nausea or vomiting. No diarrhea or constipation. No hematemesis. No hematochezia. GENITOURINARY: No urgency. No frequency. No dysuria. No hematuria. No obstructive symptoms. No discharge. No pain. No significant abnormal bleeding. MUSCULOSKELETAL: No musculoskeletal pain; no joint swelling. NEUROLOGICAL: No headache. No neck pain. No syncope. No seizures. No dizziness. PSYCHIATRIC: Not anxious. No depression. No suicidal thoughts. No homicidal thoughts. SKIN: No rash. No lesions. No wounds. ENDOCRINE: No unexplained weight loss. No weight gain. HEMATOLOGIC/LYMPHATIC: No anemia. No purpura. No petechiae. No prolonged or excessive bleeding. No palpable lymph nodes. PHYSICAL EXAMINATION: VITAL SIGNS: Temperature 98, pulse 69, respiratory rate 16, blood pressure 110/ 77 and pulse ox 94%. HEENT: Head normocephalic, atraumatic. Eyes: Extraocular muscles are intact. Pupils are equal, round and reactive to light and accommodation. Ears: No lesions. Nose appeared normal. Throat: No exudate or erythema. NECK: Supple. No JVP, no carotid bruit. No lymphadenopathy or thyromegaly. LUNGS: Clear to auscultation. Percussion note normal. Chest symmetrical. HEART: S1, S2, no S3. No murmurs. No cyanosis or clubbing. No ascites. Pulses: Dorsalis pedis and posterior tibial pulses +1 to +2 bilaterally. ABDOMEN: Soft. Nontender. Bowel sounds active. No CVA tenderness. No mass felt. EXTREMITIES: No edema. Full range of motion of all extremities, equal. Calf muscles nontender. NEUROLOGIC: No focal deficit. Cranial nerves II through XII are grossly intact. No headache, no double vision or headache. SKIN: Not dry. Intact. Turgor - normal. LYMPHATIC: No palpable lymph nodes/no lymphedema. MUSCULOSKELETAL: Normal joints with no swelling. Muscle tone is normal. ASSESSMENT: 1. Sinus tachycardia versus SVT, couple of episodes short runs 2. Fibromyalgia 3. Factor five deficiency PLAN: 1. Given extra 8mg of Coumadin today to increase her INR more than 2 2. Add Cardizem 30mg twice a day with Metoprolol 60 was given twice a day which dropped her blood pressure. The patient is advised to eat more salt and drink more fluids. 3. The patient may need stress test to see what her rhythm does with exercise and that patient is strongly advised to give up Caffeine and coffee and any amphetamines. The patient doesn't have any history of drug abuse. Her urine for drugs is negative. CONDITION: Stable. TIME SPENT: More than 30 minutes. Plan and coordination of the patient's care discussed in the presence of nurse. VENKATESH
--- NOTE | 2018-03-29 10:36 | PN ---
DATE OF SERVICE: 03/28/18 SUBJECTIVE: She is up and about doing well with her Metoprolol and Cardizem her hear rate is 60's. Blood pressure systolic 100. The patient's condition is stable. She did not have any tachycardia type of feeling or palpitations or telemetry did not show any rhythm consistent with SVT and or sinus tachycardia. The patient is advised to cut down on coffee, caffeine and chocolate. She is not to go back to work until released. The patient will have a stress echo done on Thursday morning and she will see me in the office on Thursday. REVIEW OF SYSTEMS: CONSTITUTIONAL: No night sweats. No fatigue, malaise, lethargy. No fever or chills. HEENT: Eyes: No visual changes. No eye pain. No eye discharge. ENT: No runny nose. No epistaxis. No sinus pain. No sore throat. No odynophagia. No congestion. RESPIRATORY: No cough, no congestion. No hemoptysis. No shortness of breath. CARDIOVASCULAR: No angina symptoms. No CHF symptoms. No atypical chest pain for CAD. No palpitations. No PND. No orthopnea. GASTROINTESTINAL: No abdominal pain. No nausea or vomiting. No diarrhea or constipation. No hematemesis. No hematochezia. GENITOURINARY: No urgency. No frequency. No dysuria. No hematuria. No obstructive symptoms. No discharge. No pain. No significant abnormal bleeding. MUSCULOSKELETAL: No musculoskeletal pain; no joint swelling. NEUROLOGICAL: No headache. No neck pain. No syncope. No seizures. No dizziness. PSYCHIATRIC: Not anxious. No depression. No suicidal thoughts. No homicidal thoughts. SKIN: No rash. No lesions. No wounds. ENDOCRINE: No unexplained weight loss. No weight gain. HEMATOLOGIC/LYMPHATIC: No anemia. No purpura. No petechiae. No prolonged or excessive bleeding. No palpable lymph nodes. PHYSICAL EXAMINATION: VITAL SIGNS: Temperature 97.8, pulse 63, respiratory rate 16, blood pressure 101/70 and pulse ox 99%. HEENT: Head normocephalic, atraumatic. Eyes: Extraocular muscles are intact. Pupils are equal, round and reactive to light and accommodation. Ears: No lesions. Nose appeared normal. Throat: No exudate or erythema. NECK: Supple. No JVD, no carotid bruit. No lymphadenopathy or thyromegaly. LUNGS: Clear to auscultation. Percussion note normal. Chest symmetrical. HEART: S1, S2, no S3. No murmurs. No cyanosis or clubbing. No ascites. Pulses: Dorsalis pedis and posterior tibial pulses +1 to +2 bilaterally. ABDOMEN: Soft. Nontender. Bowel sounds active. No CVA tenderness. No mass felt. EXTREMITIES: No edema. Full range of motion of all extremities, equal. NEUROLOGIC: No focal deficit. Cranial nerves II through XII are grossly intact. No headache, no double vision or headache. SKIN: Not dry. Intact. Turgor - normal. LYMPHATIC: No palpable lymph nodes/no lymphedema. MUSCULOSKELETAL: Normal joints with no swelling. Muscle tone is normal. LABS: Echo showed LVH with normal LV contractility. ASSESSMENT: 1. Palpitation with sinus tachycardia versus SVT seems to be under control and doesn't look like patient has any malignant arrhythmias of any kind like ventricular or SVT with rate of more than 180-190 per minute. PLAN: 1. The patient will undergo stress echo for arrhythmia evaluation and evaluation for coronary insufficiency. 2. The patient already has appointment scheduled with Dr. Berry at [facility] [place] in May 2018 CONDITION: Stable. CARDIOVASCULAR STATUS: Stable TIME SPENT: More than 30 minutes. Plan and coordination of the patient's care discussed in the presence of nurse. VENKATESH
--- NOTE | 2018-03-29 10:37 | PN ---
03/25/18: Level 5 03/26/18: Intermediate 03/27/18: Intermediate 03/28/18: D as in discharge MTDD
--- NOTE | 2018-03-29 10:48 | DS ---
DATE OF SERVICE: 03/28/18 FINAL DIAGNOSIS: 1. Palpitation 2. Sinus tachycardia versus SVT with fatigue and shortness of breath 3. History of SVT ablation 2012, Dr. Berry at [place] 4. Dyslipidemia 5. Hypertension 6. Fibromyalgia 7. Hypothyroidism 8. Neuropathy 9. Factor five deficiency 10.History of CVA DISCHARGE INSTRUCTION: See on Thursday, that is 4 days from now. Stress echo to be done two days from now in the morning. Advised no work until released. MEDICATIONS AT DISCHARGE: Continue Atorvastatin Levothyroxine Metoprolol Gabapentin Zanaflex Coumadin, INR at time of discharge 2.9 advised to keep INR between 2-3. NEW PRESCRIPTIONS: Cardizem 30mg PO twice a day DIET INSTRUCTIONS: As tolerated ACTIVITY: As tolerated SMOKING: N/A DISEASE SPECIFIC EDUCATION: Medications Followups Stress echo HOSPITAL COURSE: 43 year old white female hospitalized with palpitations. The patient was seen in the office and at that time the rate was 154. The patient says that her palpitation was quite frequent over few days duration more or less disabling. The patient monitoring in the hospital where a couple episodes of sinus tachycardia versus SVT noted. No other findings like ischemia, black out or anything noted during that time. The patient had Cardizem added which dropped her blood pressure systolic 70-80. It was taken off later on and she was able to tolerate Cardizem 30mg twice a day along with Metoprolol. The patient's Holter showed heart rate of 160 per minute at some point and there was a possibility of SVT. Difficult to interpret could be sinus tachycardia. In any case the patient's echocardiogram was normal with normal LV contractility, normal LA size, normal valvular structures, LVH was noted. The patient will undergo stress test with stress echo for arrhythmia evaluate and also for coronary insufficiency evaluation. The patient has several risk factors for coronary artery disease. The patient's BMI is 32 and advised to lose weight and exercise on a regular basis. Also cut down on coffee and caffeine containing products. CONDITION: Stable. TIME SPENT: More than 60 minutes. MTDD
--- NOTE | 2018-03-31 13:52 | HP ---
DATE OF SERVICE: 03/25/18 REASON FOR HOSPITALIZATION/HISTORY OF PRESENT ILLNESS: Palpitation off and on for three days. Also the left leg pain is more than before, it has been going on for two weeks off and on. The patient is off of work for that reason for past two weeks. The patient also complains of fatigue and arthritic pain all over. Shortness of breath on exertion. PAST MEDICAL HISTORY/PAST SURGICAL HISTORY: History of depression Hypertension Generalized anxiety disorder SVT with status post ablation [address] Berry Factor five deficiency History of CVA on Coumadin PFO closure Fatty liver The patient had mammogram done in August [address] Cochran, repeat in 5-7 years. REVIEW OF SYSTEMS: CONSTITUTIONAL: No night sweats. Fatigue. No fever or chills. HEENT: Eyes: No visual changes. No eye pain. No eye discharge. ENT: No runny nose. No epistaxis. No sinus pain. No sore throat. No odynophagia. No ear pain. No congestion. RESPIRATORY: No cough, no congestion. No hemoptysis. Shortness of breath on exertion as usual. CARDIOVASCULAR: No angina symptoms. No CHF symptoms. No atypical chest pain for CAD. Palpitations. No PND. No orthopnea. GASTROINTESTINAL: No abdominal pain. No nausea or vomiting. No diarrhea or constipation. No hematemesis. No hematochezia. GENITOURINARY: No urgency. No frequency. No dysuria. No hematuria. No obstructive symptoms. No discharge. No pain. No significant abnormal bleeding. MUSCULOSKELETAL: No musculoskeletal pain. No joint swelling. No arthritis. NEUROLOGICAL: No headache. No neck pain. No syncope. No seizures. No dizziness. PSYCHIATRIC: Not anxious. No depression. No suicidal thoughts. No homicidal thoughts. SKIN: No rash. No lesions. No wounds. ENDOCRINE: No unexplained weight loss. No weight gain. HEMATOLOGIC/LYMPHATIC: No anemia. No purpura. No petechiae. No prolonged or excessive bleeding. No palpable lymph nodes. PERSONAL/FAMILY/SOCIAL HISTORY: The patient is , non smoker and no alcohol abuse. She does all activity of daily living. Has unemployment. No history of drug abuse. MEDICATIONS: Coumadin 4mg daily Metoprolol 50mg twice a day Synthroid 88mcg Po daily Lipitor 20mg Po daily Gabapentin 300mg PO twice a day PRN Zanaflex 4mg PO bedtime ALLERGIES: Ciprofloxacin Clarithromycin Hydrocodone Meperidine Oxycodone PHYSICAL EXAMINATION: VITAL SIGNS: Temperature 98.4, pulse 135, respiratory rate 15, blood pressure 142/80. 5'6 and weight 202, BMI 33. HEENT: Head normocephalic, atraumatic. Eyes: Extraocular muscles are intact. Pupils are equal, round and reactive to light and accommodation. Ears: No lesions. Nose appeared normal. Throat: No exudate or erythema. NECK: Supple. No JVD, no carotid bruit. No lymphadenopathy or thyromegaly. LUNGS: Clear to auscultation. Percussion note normal. Chest symmetrical. HEART: S1, S2, no S3. No murmurs. No cyanosis or clubbing. No ascites. Pulses: Dorsalis pedis and posterior tibial pulses +1 to +2 bilaterally. ABDOMEN: Soft. Nontender. Bowel sounds active. No CVA tenderness. No mass felt. EXTREMITIES: No edema. Full range of motion of all extremities, equal. NEUROLOGIC: No focal deficit. Cranial nerves II through XII are grossly intact. No headache, no double vision or headache. SKIN: Not dry. Intact. Turgor - normal. LYMPHATIC: No palpable lymph nodes/no lymphedema. MUSCULOSKELETAL: Normal joints with no swelling. Muscle tone is normal. ASSESSMENT: 1. Palpitation 2. Shortness of breath 3. Left leg pain, rule out DVT/PE 4. Rule out Tachyarrhythmias 5. Leg cramps, restless leg syndrome 6. Fibromyalgia 7. Depression 8. Hypertension 9. Dyslipidemia 10.History of seizure disorder 11.Hypothyroidism 12.Fatty liver 13. Factor five deficiency with history of CVA on Coumadin 14. Status post cholecystectomy 15. Status post PFO closure PLAN: 1. Admit the patient 2. Venous scan was done which was negative on the left lower extremity 3. D-Dimer was negative 4. Continue to do CBC and CMP 5. Continue INR 6. Strongly advised to take Coumadin regularly. The patient says that she had at times forgets to take Coumadin 7. Advised to keep INR between 2-3. 8. Advised to come regularly for INR, the patient is noncompliant in coming regularly to have her INR check 9. Diet discussed BMI 31 10.Will put telemetry 11.Holter Monitor 12.Will try to give patient Cardizem along with Metoprolol if tolerated with her blood pressure. TIME SPENT: More than 70 minutes. MTDD
== END 2018-03-28 12:50 | disposition home or self-care (01) | DRG 309 ==
LOC: ED 14:28 → MEDSURG B 17:11
PROVIDERS: ADMIT Internal Medicine; ATTEND Internal Medicine
DX: I47.1 Supraventricular tachycardia (principal); D68.2 Hereditary deficiency of other clotting factors; I10 Essential (primary) hypertension; G62.9 Polyneuropathy, unspecified; M79.7 Fibromyalgia; M79.662 Pain in left lower leg; F32.9 Major depressive disorder, single episode, unspecified; E78.5 Hyperlipidemia, unspecified; E03.9 Hypothyroidism, unspecified; E87.6 Hypokalemia; R06.00 Dyspnea, unspecified; R42 Dizziness and giddiness; R55 Syncope and collapse; R53.1 Weakness; R06.02 Shortness of breath; R07.9 Chest pain, unspecified
CPT/HCPCS: 36415; 80053; 80306; 81001; 82550; 82553; 83735; 84436; 84443; 84484; 85025; 85379; 85610; 93005; 93010; 93227; 96372; 99223; 99232; 99239; 99285

== ENCOUNTER 2018-03-29 22:44 | Emergency (ER) ==
[2018-03-29 22:51] VITALS: TEMP 98.1; BMI 32.8
[2018-03-29] MEDS ORDERED: SODIUM CHLORIDE 1,000 ML IV STA (23:07)
--- NOTE | 2018-03-29 23:08 | ED.PDOC ---
General ED Provider: Dr. HARRISON CASTELAN MD Chief Complaint: Dizziness Stated Complaint: low blood pressure Time Seen by Physician: 23:00 Mode of Arrival: Wheelchair Information Source: Patient Exam Limitations: No limitations Primary Care Provider: GISELA HAAS Nursing and Triage Documentation Reviewed and Agree: Yes Does patient meet sepsis criteria?: No If yes, has appropriate treatment been initiated?: Yes System Inflammatory Response Syndrome: Not Applicable Sepsis Protocol: For patient's 13 years and over: Temp is 96.8 and below OR 101 and greater Pulse >90 BPM Resp >20/minute Acutely Altered Mental Status Are patient's symptoms suggestive of a new infection, such as: -Pneumonia -Skin, Soft Tissue -Endocarditis -UTI -Bone, Joint Infection -Implantable Device -Acute Abdominal Infection -Wound Infection -Meningitis -Blood Stream Catheter Infection -Unknown Review of Systems - Review Of Systems Constitutional: Reports: Weakness Eyes: Reports: No symptoms Ears, Nose, Mouth, Throat: Reports: No symptoms Respiratory: Reports: No symptoms Cardiac: Reports: Lightheadedness (just added another Bmed) GI: Reports: No symptoms : Reports: No symptoms Musculoskeletal: Reports: No symptoms Skin: Reports: No symptoms Neurological: Reports: No symptoms Endocrine: Reports: No symptoms Hematologic/Lymphatic: Reports: No symptoms All Other Systems: Reviewed and Negative Past Medical History - Past Medical History Previously Healthy: Yes Endocrine: Reports: Hypothyroid, Dyslipidemia Cardiovascular: Reports: Hypertension, CHF Respiratory: Reports: None Hematological: Reports: Anemia, Other (factor 5 leiden factor 8) Gastrointestinal: Reports: GERD Genitourinary: Reports: None Neuro/Psych: Reports: TIA, CVA (2011), Seizure, Depression Musculoskeletal: Reports: Arthritis Cancer: Reports: None Last Menstrual Period: PT HAS HAD A HYSTERECTOMY Other Pertinent Past Medical History: SVT ablation, PFO closure - Surgical History General Surgical History: Reports: Hysterectomy, , Appendectomy, Cholecystectomy, Tonsillectomy, Adenoidectomy, Orthopedic (cervical fusion x 2) , Unknown - Family History Family History: Reports: Unknown - Social History Smoking Status: Former smoker Hx Substance Use: No Alcohol Screening: Occasionally - Immunizations Tetanus Shot up to Date: Yes Physical Exam - Physical Exam Appearance: Obese Ill-appearing: Mild Eyes: GIUSEPPE, EOMI, Conjunctiva clear ENT: Ears normal, Nose normal, Oropharynx normal Respiratory: Airway patent, Breath sounds clear, Breath sounds equal, Respirations nonlabored Cardiovascular: RRR, Pulses normal, No rub, No murmur GI/: Soft, Nontender, No masses, Bowel sounds normal, No Organomegaly Musculoskeletal: Normal strength, ROM intact, No edema, No calf tenderness Skin: Warm, Dry, Normal color Neurological: Sensation intact, Motor intact, Reflexes intact, Cranial nerves intact, Alert, Oriented Psychiatric: Affect appropriate, Mood appropriate Critical Care Note - Critical Care Note Total Time (mins): 0 Course - Course Vital Signs: Temp Pulse Resp BP Pulse Ox 03/29/18 22:45 98.1 F 79 16 101/69 97 Departure - Departure Time of Disposition: 00:10 Disposition: HOME SELF-CARE Discharge Problem: Hypotension Condition: Good Pt referred to PMD for follow-up: Yes IPMP verified?: No Allergies/Adverse Reactions: Allergies ciprofloxacin [From Cipro] Adverse Reaction (Verified 03/29/18 22:50) clarithromycin [From Biaxin] Adverse Reaction (Verified 03/29/18 22:50) hydrocodone Adverse Reaction (Verified 03/29/18 22:50) meperidine HCl [From Demerol] Adverse Reaction (Verified 03/29/18 22:50) oxycodone Adverse Reaction (Verified 03/29/18 22:50) bad yeast infections Home Medications: Ambulatory Orders Atorvastatin Calcium [Lipitor] 20 mg PO DAILY 05/03/15 Levothyroxine Sodium [Synthroid] 88 mcg PO DAILY 05/03/15 Metoprolol Tartrate [Lopressor] 50 mg PO BID 12/07/15 Gabapentin 300 mg PO BID PRN 03/25/18 Tizanidine HCl [Zanaflex] 4 mg PO BEDTIME 03/25/18 Warfarin Sodium [Coumadin] 4 mg PO QPM 03/25/18 Diltiazem HCl [Cardizem] 30 mg PO Q12HR #1 tablet 03/28/18 Disposition Discussed With: Patient
[2018-03-30] MEDS ORDERED: SODIUM CHLORIDE 1,000 ML IV STA (00:03)
[2018-03-30 00:52] VITALS: BP 106/64
== END 2018-03-30 01:30 | disposition home or self-care (01) ==
LOC: ED 22:44
DX: R42 Dizziness and giddiness (principal); I95.9 Hypotension, unspecified; R53.1 Weakness
CPT/HCPCS: 96360; 96361; 99283

== ENCOUNTER 2018-04-05 06:23 | Outpatient (CLI) ==
--- NOTE | 2018-04-05 08:52 | STRESSECHO ---
Date of Test: 04/05/18 Ordering Physician: DR. GISELA HAAS Occupation: NIGHT COORDINATOR Reason for Exam: PALPITATIONS, SOB Smoking History: NONE Height: 66" Weight: 203 LBS Current Medications: COUMADIN, ZANAFLEX, LOPRESSOR, SYNTHROID, GABAPENTIN, LIPITOR Resting EKG: SINUS RHYTHM/ NO ACUTE CHANGES Target Heart Rate: 152/179 S-T SEGMENT STAGE MPH/GRADE HEART RATE BPM BLOOD PRESSURE MMHG RHYTHM +/- ELEVATION DEPRESSION SYMPTOMS AT REST 70 BPM 140/88 MMHG SR X NONE 1 1.7/10% 140 BPM 162/90 MMHG SR X NONE 2 2.5/12% 3 3.4/14% 4 4.2/16% 5 5.0/18% Immediately After 162 BPM 168/88 MMHG SR X SHORT OF BREATH Minutes Post Exercise 5:00 80 BPM 142/94 MMHG SR X NONE Minutes Post Exercise DURATION OF EXERCISE: 4:59 MAXIMUM HEART RATE REACHED: 162 BPM REASON FOR TERMINATION: SHORT OF BREATH 97% OXYGEN SATURATION WITH EXERCISE ON ROOM AIR INTERPRETATION: 1. NO EVIDENCE OF ISCHEMIA BY ST-T WAVE CHANGES 2. NO CHEST PAIN OR DISCOMFORT 3. BLOOD PRESSURE RESPONSE: BORDERLINE AT REST AND WITH EXERCISE 4. NO ARRHYTHMIAS NORMAL LEFT VENTRICULAR CONTRACTILITY--RESTING AND POST EXERCISE MTDD
--- NOTE | 2018-04-05 10:47 | ECHOSTRESS ---
Date of Exam: 04/05/18 Ordering Physician: DR. GISELA HAAS Reason for Echo: PALPITATIONS, STRESS TEST--NO ISCHEMIA M-Mode Normal Adult Results LV Dimensions Normal Adult Results AoV Opening excursions >1.6 LVEDD-base- 3.5-5.8 Ao root dimensions 2.0-3.7 LVESD-base- 3.1-4.6 L. Atrium dimensions 1.9-3.8 Post. Wall thickness 0.8-1.1 IV septum (thickness) 0.7-1.2 Post. Wall excursion 0.72-1.3 Septal motion Systolic motion R. Ventricular cavity 1.5-2.0 LVEF 60% Paradoxical septal wall motion 2-D: NORMAL LEFT VENTRICULAR CONTRACTILITY--RESTING AND POST EXERCISE M-MODE: MV: AV: TV: PV: CHAMBER SIZE: WALL MOTION: NORMAL LEFT VENTRICULAR CONTRACTILITY--RESTING AND POST EXERCISE PERICARDIUM: INTERPRETATION: 1. NORMAL LEFT VENTRICULAR CONTRACTILITY--RESTING AND POST EXERCISE MTDD
== END 2018-04-05 06:24 | disposition home or self-care (01) ==
LOC: CAR 06:23
PROVIDERS: ATTEND Internal Medicine
DX: R07.9 Chest pain, unspecified (principal); R00.2 Palpitations

== ENCOUNTER 2018-04-21 12:27 | Outpatient (CLI) | END 2018-04-21 12:28 | disposition home or self-care (01) | LOC: LAB 12:27 | PROVIDERS: ATTEND Nurse Practitioner | DX: M79.7 Fibromyalgia (principal); D50.9 Iron deficiency anemia, unspecified; E55.9 Vitamin D deficiency, unspecified | CPT/HCPCS: 36415; 82306; 82533; 82607; 82728; 82746; 83540; 83735; 84425; 84479; 85597; 85598; 85610; 85613; 85651; 85670; 85730; 85732; 86038; 86140; 86146; 86147; 86200; 86430; 86617 ==

== ENCOUNTER 2018-05-12 20:00 | Emergency (ER) ==
[2018-05-12] MEDS ORDERED: EYE-STREAM OP STA (20:04)
[2018-05-12] MEDS ORDERED: TETRACAINE 0.5% UNIT-DOSE OP STA (20:04)
[2018-05-12 20:06] VITALS: BP 148/95; TEMP 98.8; BMI 33.5
[2018-05-12] MEDS ORDERED: FUL-GLO OP STA (20:16)
--- NOTE | 2018-05-12 20:25 | ED.PDOC ---
General ED Provider: Dr. HARRISON SILVEIRA-ER Chief Complaint: Eye Problem Stated Complaint: monae got a piece of insulation in my eye Time Seen by Physician: 20:23 Mode of Arrival: Walk-In Information Source: Patient Exam Limitations: No limitations Primary Care Provider: GISELA HAAS Nursing and Triage Documentation Reviewed and Agree: Yes Does patient meet sepsis criteria?: No System Inflammatory Response Syndrome: Not Applicable Sepsis Protocol: For patient's 13 years and over: Temp is 96.8 and below OR 101 and greater Pulse >90 BPM Resp >20/minute Acutely Altered Mental Status Are patient's symptoms suggestive of a new infection, such as: -Pneumonia -Skin, Soft Tissue -Endocarditis -UTI -Bone, Joint Infection -Implantable Device -Acute Abdominal Infection -Wound Infection -Meningitis -Blood Stream Catheter Infection -Unknown EENT Complaint Exam - Eye Complaint/Exam Onset/Duration: a few hours Symptoms Are: Still present Timing: Constant Initial Severity: Mild Current Severity: Mild Location: Discreet, Left Character: Reports: Dull, Foreign body sensation Aggravating: Reports: Blinking Alleviating: Reports: Darkness Associated Signs and Symptoms: Reports: Photophobia Related History: Reports: Similar episode Eye Surgical History: Reports: None Globe Rupture Risk Factors: None Optic Artery Occlusion Risk Factors: None Visual Field: Normal Extraocular Movement: Normal Orbit Findings: Normal Globe Findings: Intact Lid Findings: Normal Conjunctival Findings: Red Corneal Findings: Clear Fluorescein Uptake: Yes Fundi: Normal Slit Lamp Used: No Differential Diagnoses: Corneal Abrasion Review of Systems - Review Of Systems Constitutional: Reports: No symptoms Eyes: Reports: Vision change, Drainage, Pain, Photophobia Ears, Nose, Mouth, Throat: Reports: No symptoms Respiratory: Reports: No symptoms Cardiac: Reports: No symptoms GI: Reports: No symptoms : Reports: No symptoms Musculoskeletal: Reports: No symptoms Skin: Reports: No symptoms Neurological: Reports: No symptoms Endocrine: Reports: No symptoms Hematologic/Lymphatic: Reports: No symptoms All Other Systems: Reviewed and Negative Past Medical History - Past Medical History Previously Healthy: Yes Endocrine: Reports: Hypothyroid, Dyslipidemia Cardiovascular: Reports: Hypertension, CHF Respiratory: Reports: None Hematological: Reports: Anemia, Other (factor 5 leiden factor 8) Gastrointestinal: Reports: GERD Genitourinary: Reports: None Neuro/Psych: Reports: TIA, CVA (2011), Seizure, Depression Musculoskeletal: Reports: Arthritis Cancer: Reports: None Last Menstrual Period: 1996 Other Pertinent Past Medical History: SVT ablation, PFO closure - Surgical History General Surgical History: Reports: Hysterectomy, , Appendectomy, Cholecystectomy, Tonsillectomy, Adenoidectomy, Orthopedic (cervical fusion x 2) , Unknown - Family History Family History: Reports: Unknown - Social History Smoking Status: Former smoker Hx Substance Use: No Alcohol Screening: Occasionally - Immunizations Tetanus Shot up to Date: Yes Physical Exam - Physical Exam Appearance: Well-appearing, No pain distress, Well-nourished Pain Distress: Mild Eyes: Conjunctiva inflammed ENT: Ears normal, Nose normal, Oropharynx normal Neck: Supple Respiratory: Airway patent, Breath sounds clear, Breath sounds equal, Respirations nonlabored Cardiovascular: RRR, Pulses normal, No rub, No murmur GI/: Soft, Nontender, No masses, Bowel sounds normal, No Organomegaly Musculoskeletal: Normal strength, ROM intact, No edema, No calf tenderness Skin: Warm, Dry, Normal color Neurological: Sensation intact, Motor intact, Reflexes intact, Cranial nerves intact, Alert, Oriented Psychiatric: Affect appropriate, Mood appropriate Procedures - Foreign Body Removal Location of Foreign Object: lateral aspect of left eye Foreign Object: insulation Depth of Object: superficial Type of Anesthesia: Topical Medication Used: Yes: Tetracaine Prep: Saline Irrigation: Yes Skin Incised: No Instruments Used: Yes: Q-tip Foreign Body Identified and Removed: Yes Critical Care Note - Critical Care Note Total Time (mins): 0 Course - Course Orders, Labs, Meds: Orders Category Date Time Status Balanced Salt Solution [Eye-Stream] MEDS 05/12/18 20:04 Discontinued 1 bottle OP ONCE STA Fluorescein Sodium [Ful-Belinda] MEDS 05/12/18 20:16 Discontinued 1 strip OP ONCE STA Tetracaine HCl/Pf [Tetracaine 0.5% Unit-Dose] MEDS 05/12/18 20:04 Discontinued 2 drop OP ONCE STA Medications Discontinued Medications Generic Name Dose Route Start Last Admin Trade Name Freq PRN Reason Stop Dose Admin Eye Irrigation Solution 1 bottle 05/12/18 20:04 Eye-Stream OP 05/12/18 20:05 ONCE STA Fluorescein Sodium 1 strip 05/12/18 20:16 Ful-Belinda OP 05/12/18 20:17 ONCE STA Tetracaine HCl 2 drop 05/12/18 20:04 Tetracaine 0.5% Unit-Dose OP 05/12/18 20:05 ONCE STA Vital Signs: Temp Pulse Resp BP Pulse Ox 05/12/18 20:00 98.8 F 80 16 148/95 H 94 L Departure - Departure Time of Disposition: 20:26 Disposition: HOME SELF-CARE Discharge Problem: Corneal abrasion Qualifiers: Encounter type: initial encounter Laterality: left Qualified Code(s): S05.02XA - Injury of conjunctiva and corneal abrasion without foreign body, left eye, initial encounter Instructions: Corneal Abrasion (ED) Condition: Good Pt referred to PMD for follow-up: Yes IPMP verified?: No Additional Instructions: keep eye patched----apply drops q 6hrs---norco 7.5mg q 6hrs prn pain #6----see eye doctor tomorrow--this is very important Allergies/Adverse Reactions: Allergies ciprofloxacin [From Cipro] Adverse Reaction (Verified 05/12/18 20:08) clarithromycin [From Biaxin] Adverse Reaction (Verified 05/12/18 20:08) meperidine HCl [From Demerol] Adverse Reaction (Verified 05/12/18 20:08) oxycodone Adverse Reaction (Verified 05/12/18 20:08) bad yeast infections Home Medications: Ambulatory Orders Atorvastatin Calcium [Lipitor] 20 mg PO DAILY 05/03/15 Levothyroxine Sodium [Synthroid] 88 mcg PO DAILY 05/03/15 Metoprolol Tartrate [Lopressor] 50 mg PO BID 12/07/15 Tizanidine HCl [Zanaflex] 4 mg PO BEDTIME 03/25/18 Warfarin Sodium [Coumadin] 4 mg PO QPM 03/25/18 Pregabalin [Lyrica] 50 mg PO BID 05/12/18
[2018-05-12] MEDS ORDERED: [UNRECOGNIZED DRUG - OTHER] OP STA (20:27)
== END 2018-05-12 20:46 | disposition home or self-care (01) ==
LOC: ED 20:00
DX: S05.02XA Injury of conjunctiva and corneal abrasion without foreign body, left eye, initial encounter (principal)
CPT/HCPCS: 99283

== ENCOUNTER 2018-05-19 00:31 | Outpatient (CLI) | END 2018-05-19 00:56 | disposition short-term general hospital (02) | LOC: AMBL 00:31 | PROVIDERS: ATTEND Family Medicine | DX: I95.9 Hypotension, unspecified (principal); R00.0 Tachycardia, unspecified; R51 Headache; R55 Syncope and collapse ==

== ENCOUNTER 2018-08-04 09:48 | Outpatient (CLI) ==
--- NOTE | 2018-08-04 11:33 | CT ---
EXAM: CT chest without contrast HISTORY: Nodule lower lobe right lung COMPARISON: 01/01/2018 TECHNIQUE: CT chest performed without intravenous contrast. Coronal and sagittal reformatted images obtained. FINDINGS: Thyroid and thoracic inlet appear normal. Heart normal in size. An intra-atrial septal c losure device noted. No pericardial effusion. Aorta normal in caliber. Esophagus unremarkable. Ev aluation for lymphadenopathy limited without contrast. No lymphadenopathy identified. Visualized po rtion upper abdomen demonstrates no acute abnormality. Status post cholecystectomy. No acute abnorm alities of the bones. Cervical spinal fusion hardware, incompletely imaged. Degenerative change in the spine. Central airway patent. No airspace consolidation. No pleural effusion. No pneumothorax . Right lower lobe pulmonary nodule measures 0.8 cm on image 27, unchanged IMPRESSION: 1. Stable right lower lobe pulmonary nodule measuring 0.[address] chest follow-up recommended in 6 [facility]. 2. No acute cardiopulmonary process.
== END 2018-08-04 09:49 | disposition home or self-care (01) ==
LOC: RAD 09:48
PROVIDERS: ATTEND Internal Medicine Pulmonary Disease
DX: R91.1 Solitary pulmonary nodule (principal)

== ENCOUNTER 2018-08-11 10:19 | Outpatient (CLI) ==
--- NOTE | 2018-08-11 11:33 | MAMMO ---
EXAM: Bilateral digital screening mammogram (2-D and 3-D) History: Screening Comparison: Bilateral mammogram 08/07/2017 Findings: MLO and CC views of bilateral breasts demonstrate scattered fibroglandular breast parenchy ma. CAD was reviewed by the radiologist. Tomosynthesis was performed. Stable benign bilateral marry st calcifications. There are no dominant masses, no suspicious microcalcifications and no architectu ral distortions Impression: Benign stable mammogram. Recommend followup routine screening mammography in 1 year. BI-RADS 2, benign
== END 2018-08-11 10:20 | disposition home or self-care (01) ==
LOC: RAD 10:19
PROVIDERS: ATTEND Internal Medicine
DX: Z12.31 Encounter for screening mammogram for malignant neoplasm of breast (principal)

== ENCOUNTER 2018-08-19 12:39 | Observation (INO) ==
[2018-08-19] MEDS ORDERED: ATIVAN PO PRN (13:32)
[2018-08-19] MEDS ORDERED: NITROSTAT SL PRN (13:32)
[2018-08-19] MEDS ORDERED: ATROPINE SULFATE PFS IVP PRN (13:32)
[2018-08-19 13:34] VITALS: BMI 32.1
[2018-08-19] MEDS ORDERED: LOPRESSOR PO STA (13:43)
--- NOTE | 2018-08-19 14:33 | PN ---
DATE OF SERVICE: 08/19/18 SUBJECTIVE: The patient was seen and examined in the office. The patient's EKG showed in the office sinus tachycardia with ST-T wave changes. The patient has this type of palpitation for past two to three days. She had previous ablation 7-8 years ago by county or city auditor, Dr. Berry. She is very nervous and has a lot of anxiety. She was turned on disability, bothered her her mother was with her. REVIEW OF SYSTEMS: CONSTITUTIONAL: No night sweats. No fatigue, malaise, lethargy. No fever or chills. HEENT: Eyes: No visual changes. No eye pain. No eye discharge. ENT: No runny nose. No epistaxis. No sinus pain. No sore throat. No odynophagia. No congestion. RESPIRATORY: No cough, no congestion. No hemoptysis. Shortness of breath. CARDIOVASCULAR: No angina symptoms. No CHF symptoms. No atypical chest pain for CAD. No palpitations. No PND. No orthopnea. GASTROINTESTINAL: No abdominal pain. No nausea or vomiting. No diarrhea or constipation. No hematemesis. No hematochezia. GENITOURINARY: No urgency. No frequency. No dysuria. No hematuria. No obstructive symptoms. No discharge. No pain. No significant abnormal bleeding. MUSCULOSKELETAL: No musculoskeletal pain; no joint swelling. NEUROLOGICAL: No headache. No neck pain. No syncope. No seizures. No dizziness. PSYCHIATRIC: Not anxious. No depression. No suicidal thoughts. No homicidal thoughts. SKIN: No rash. No lesions. No wounds. ENDOCRINE: No unexplained weight loss. No weight gain. HEMATOLOGIC/LYMPHATIC: No anemia. No purpura. No petechiae. No prolonged or excessive bleeding. No palpable lymph nodes. PHYSICAL EXAMINATION: HEENT: Head normocephalic, atraumatic. Eyes: Extraocular muscles are intact. Pupils are equal, round and reactive to light and accommodation. Ears: No lesions. Nose appeared normal. Throat: No exudate or erythema. NECK: Supple. No JVD, no carotid bruit. No lymphadenopathy or thyromegaly. LUNGS: Decreased breath sounds but clear to auscultation. Percussion note normal. Chest symmetrical. HEART: S1, S2, no S3. No murmurs. No cyanosis or clubbing. No ascites. Pulses: Dorsalis pedis and posterior tibial pulses +1 to +2 bilaterally. ABDOMEN: Soft. Nontender. Bowel sounds active. No CVA tenderness. No mass felt. EXTREMITIES: No edema. Full range of motion of all extremities, equal. NEUROLOGIC: No focal deficit. Cranial nerves II through XII are grossly intact. No headache, no double vision or headache. SKIN: Not dry. Intact. Turgor - normal. LYMPHATIC: No palpable lymph nodes/no lymphedema. MUSCULOSKELETAL: Normal joints with no swelling. Muscle tone is normal. PLAN: 1. The patient is on Coumadin and also on Duexis by Dr. Pang. Strongly advised to discontinue. Education again about non-steroidal antiinflammatory and not to take it with Coumadin. 2. The patient will also undergo test to rule out any pulmonary embolism 3. We will do venous studies of lower extremities. TIME SPENT: More than 30 minutes. Plan and coordination of the patient's care discussed in the presence of nurse. VENKATESH
[2018-08-19] MEDS ORDERED: NORCO 5-325 PO PRN (14:41)
[2018-08-19] MEDS ORDERED: NON-FORMULARY MEDICATION (Oxcarbazepine [Trileptal] 300 MG) PO SCH (15:00)
[2018-08-19] MEDS: TRILEPTAL PO SCH ×2 (15:17→20:49)
[2018-08-19] MEDS: ZANAFLEX PO SCH ×2 (15:17→22:07)
[2018-08-19] MEDS: SODIUM CHLORIDE 1,000 ML IV SCH (15:17)
--- NOTE | 2018-08-19 15:21 | US ---
EXAM: Bilateral lower extremity venous Doppler History: Bilateral lower extremity pain and swelling. Technique: Multiple sonographic images through the bilateral lower extremities were obtained. Color duplex Doppler was used to interrogate vascular flow. Findings: The bilateral common femoral, greater saphenous, profunda, superficial femoral, popliteal, peroneal, posterior tibial and anterior tibial veins demonstrate spontaneous flow with normal compre ssion and normal augmentation. Impression: No sonographic evidence for deep venous thrombosis
[2018-08-19] MEDS ORDERED: LOVENOX ONE (16:40)
[2018-08-19] MEDS: LOVENOX SUBCUT SCH (16:42)
--- NOTE | 2018-08-19 17:03 | CT ---
EXAM: CTA CHEST (PE PROTOCOL) HISTORY: Low blood pressure, high heart rate TECHNIQUE: CTA chest with intravenous contrast. Multiplanar images were provided with 3-D reconstru ctions. 100 mL Omnipaque. COMPARISON: 08/04/2018 FINDINGS: No pulmonary arterial filling defect. Mild atherosclerotic disease. Normal heart size. No pericard ial effusion. Redemonstration of a 8 mm medial left lower lobe nodule. Coronal image 56, which is stable and was p reviously described is stable since 2018. No acute infiltrates are identified. There is no vascular congestion, pneumothorax or pleural fluid. The bones are within normal limits. IMPRESSION: 1. No pulmonary arterial thromboembolism. 2. Stable right lower lobe nodule. Consider follow-up CT in 6 months. 3. Mild atherosclerotic disease.
[2018-08-19] MEDS: ATIVAN PO SCH (20:50)
[2018-08-19] MEDS: LOPRESSOR PO SCH (20:50)
[2018-08-19] MEDS ORDERED: LOPRESSOR PO SCH (21:00)
[2018-08-19] MEDS ORDERED: ROCEPHIN 1 GM in SODIUM CHLORIDE 50 ML IV SCH (21:00)
[2018-08-19] MEDS: NORTRIPTYLINE HCL PO SCH (21:51)
[2018-08-20] MEDS: SODIUM CHLORIDE 1,000 ML IV SCH ×4 (01:08→21:27)
[2018-08-20] MEDS: SYNTHROID PO SCH (05:46)
--- NOTE | 2018-08-20 08:39 | PCM.PROG ---
Attending Provider: ATTENDING PROVIDER: Dr. GISELA HAAS DATE OF SERVICE: 08/20/18 SUBJECTIVE: This 43 year old WHITE/ F was hospitalized 08/19/18 with sinus tachycardia, shortness of breath and anxiety. The patient had been turned down on disability and that has caused the anxiety. The patient's mother was in the room with her at the office. The patient his morning looks better. REVIEW OF SYSTEMS: CONSTITUTIONAL: No night sweats. No fatigue, malaise, lethargy. No fever or chills. HEENT: Eyes: No visual changes. No eye pain. No eye discharge. ENT: No runny nose. No epistaxis. No sinus pain. No odynophagia. No congestion. RESPIRATORY: No cough, no congestion. No hemoptysis. No shortness of breath. CARDIOVASCULAR: No angina symptoms. No CHF symptoms. No atypical chest pain for CAD. No palpitations. No orthopnea.. GASTROINTESTINAL: No abdominal pain. No nausea or vomiting. No diarrhea or constipation. No hematemesis. No hematochezia. GENITOURINARY: No urgency. No frequency. No dysuria. No hematuria. No obstructive symptoms. No discharge. No pain. No significant abnormal bleeding. MUSCULOSKELETAL: No musculoskeletal pain; no joint swelling. NEUROLOGICAL: Awake, alert, oriented to time, place and person. No headache. No neck pain. No syncope. No seizures. No dizziness. PSYCHIATRIC: Not anxious. No depression. No suicidal thoughts. No homicidal thoughts. SKIN: No rash. No lesions. No wounds. ENDOCRINE: No unexplained weight loss. No weight gain. HEMATOLOGIC/LYMPHATIC: No anemia. No purpura. No petechiae. No prolonged or excessive bleeding. No palpable lymph nodes. PHYSICAL EXAMINATION: GENERAL: The patient is awake, alert and oriented, lying in bed in no distress. VITAL SIGNS: Temperature 97.9 F, Pulse 67, Respiratory Rate 16, BP 120/84, Pulse Ox 99% HEENT: Head normocephalic, atraumatic. Eyes: Extraocular muscles are intact. Pupils are equal, round and reactive to light and accommodation. Ears: No lesions. Nose appeared normal. Throat: No exudate or erythema. NECK: Supple. No JVD, no carotid bruit. No lymphadenopathy or thyromegaly. LUNGS: Clear to auscultation. Percussion note normal. Chest symmetrical. HEART: S1, S2, no S3. No murmurs. No cyanosis or clubbing. No ascites. Pulses: Dorsalis pedis and posterior tibial pulses +1 to +2 both sides. ABDOMEN: Soft. Non-tender. Bowel sounds active. No CVA tenderness. No mass felt. EXTREMITIES: No edema. Full range of motion of all extremities, equal. NEUROLOGIC: No focal deficit. Cranial nerves II through XII are grossly intact. No headache, no double vision or headache. SKIN: Warm and dry. Intact. Turgor-normal. LYMPHATIC: No palpable lymph nodes/no lymphedema. MUSCULOSKELETAL: Normal joints with no swelling. Muscle tone is normal. LAB REVIEW: 08/20/18 05:00 08/20/18 05:00 08/20/18 05:00: Sodium 136.0, Potassium 4.03, Chloride 101.9, Carbon Dioxide 25.5, Anion Gap 12.63, BUN 11.0, Creatinine 0.74, Estimated GFR (MDRD) 86.00, BUN/Creatinine Ratio 14.86, Glucose 101.4, Calcium 8.51, Total Bilirubin 0.43, AST 38.6 H, ALT 55.5 H, Alkaline Phosphatase 102.2, Total Protein 5.88 L, Albumin 3.60, Globulin 2.28, Albumin/Globulin Ratio 1.57 08/20/18 05:00: PT 10.2, INR 1.02 08/20/18 05:00: WBC 8.43, RBC 4.73, Hgb 13.5, Hct 40.4, MCV 85.4, MCH 28.5, MCHC 33.4, RDW Coeff of Sharee 13.0, Plt Count 217, Immature Gran % (Auto) 0.7, Neut % (Auto) 47.7, Lymph % (Auto) 41.2, [place] % (Auto) 8.4, Eos % (Auto) 1.8, Baso % (Auto) 0.2, Immature Gran # (Auto) 0.1, Neut # (Auto) 4.0, Lymph # (Auto ) 3.5 H, [place] # (Auto) 0.7, Eos # (Auto) 0.2, Baso # (Auto) 0.0 08/19/18 21:45: Total Creatine Kinase 39.0, Troponin I < 0.012 08/19/18 18:40: Urine Color Yellow, Urine Clarity Clear, Urine pH 5.0, Ur Specific Hendricks 1.010, Urine Protein Negative, Urine Glucose (UA) Negative, Urine Ketones Negative, Urine Blood Trace-lysed, Urine Nitrite Negative, Urine Bilirubin Negative, Urine Urobilinogen 0.2, Ur Leukocyte Esterase Negative, Urine Microscopic RBC 0-2, Urine Microscopic WBC 0-2, Ur Squamous Epith Cells 2- 5 08/19/18 13:59: Sodium 137.1, Potassium 3.91, Chloride 100.6, Carbon Dioxide 25.6, Anion Gap 14.81, BUN 15.3, Creatinine 0.87, Estimated GFR (MDRD) 72.00, BUN/Creatinine Ratio 17.58, Glucose 122.4 H, Calcium 9.40, Total Bilirubin 0.90 , AST 40.0 H, ALT 66.4 H, Alkaline Phosphatase 108.5, Total Creatine Kinase 37.4 , Troponin I < 0.012, Total Protein 7.01, Albumin 4.47, Globulin 2.54, Albumin/ Globulin Ratio 1.75, TSH 1.960 08/19/18 13:59: WBC 10.83 H, RBC 5.35, Hgb 15.4, Hct 45.0, MCV 84.1, MCH 28.8, MCHC 34.2, RDW Coeff of Sharee 13.1, Plt Count 280, Immature Gran % (Auto) 0.6, Neut % (Auto) 60.1, Lymph % (Auto) 28.3, [place] % (Auto) 9.3, Eos % (Auto) 1.3, Baso % (Auto) 0.4, Immature Gran # (Auto) 0.1, Neut # (Auto) 6.5, Lymph # (Auto ) 3.1, [place] # (Auto) 1.0, Eos # (Auto) 0.1, Baso # (Auto) 0.0 08/19/18 13:59: PT 14.5 H, INR 1.47 08/19/18 13:59: Free T4 1.63 ASSESSMENT: Please see below. 1. Shortness of breath likely cause is sedentary lifestyle and anxiety. PE has been ruled out. CT chest angiogram is negative and Venous scan is negative for DVT 2. Periods of sinus tachycardia on walking which is probably related to sedentary lifestyle and anxiety 3. Obese, she has been going to the gym for last 4 weeks. 4. She is being treated for chronic back pain by Dr. Niño with ablation to the lumbar spine. Last ablation was 5 days ago, the next will be 4 days from now. The patient is off Coumadin. This is on hold for the next procedure. PLAN: 1. Counseling for weight loss done 2. Echo and stress echo 3. Stop Rocephin 4. Zoloft was increased, thinks she has a lot of the side effects. She is reluctant to take because of the side effects. The patient is mildly depressed from rejection she got from disability hearing. She has no suicidal or homicidal thoughts. Plan and coordination of the patient's care discussed in the presence of Claim Agent and nurse. CONDITION: Stable. SCRIBED BY: JE BYRD Professor Of Literature scribed while in presence of service performed by Dr. GISELA HAAS on 08/20/18 ([id number])
[2018-08-20] MEDS ORDERED: ZOLOFT PO SCH (09:00)
[2018-08-20] MEDS ORDERED: NON-FORMULARY MEDICATION (Duloxetine Hcl [Cymbalta] 60 MG) PO SCH (09:00)
[2018-08-20] MEDS: ATIVAN PO SCH ×3 (09:23→21:26)
[2018-08-20] MEDS: LOPRESSOR PO SCH ×2 (09:23→21:26)
[2018-08-20] MEDS: CYMBALTA PO SCH (09:23)
[2018-08-20] MEDS: LIPITOR PO SCH (09:23)
[2018-08-20] MEDS: TRILEPTAL PO SCH ×3 (09:23→21:25)
[2018-08-20] MEDS: ZANAFLEX PO SCH ×3 (09:23→22:31)
[2018-08-20] MEDS: ASPIRIN EC PO SCH (09:23)
[2018-08-20] MEDS: LOVENOX SUBCUT SCH (09:44)
--- NOTE | 2018-08-20 10:26 | HP ---
DATE OF SERVICE: 08/19/18 REASON FOR HOSPITALIZATION/HISTORY OF PRESENT ILLNESS: The patient had had increased heart rate since 2 days ago. She got news that terminologist disability had been denied. She has been stress/anxious. Blood pressure has been fluctuating up and down; 167/49 -82/60 at standing. She has had dry mouth and nauseated. PAST MEDICAL HISTORY: SVT Hypertension Ulcers Thyroid Seizure TIA Blood disorder Back pain Insomnia Fibromyalgia PAST SURGICAL HISTORY: Hysterectomy Tubal ligation Cervical fusion x2 Lasik eye surgery Ablation, [place] Cholecystectomy REVIEW OF SYSTEMS: CONSTITUTIONAL: No fever, Fatigue. HEENT: No sinus drainage, no sore throat. RESPIRATORY: No cough, no congestion. CARDIOVASCULAR: No atypical chest pain for coronary artery disease. No angina , CHF symptoms. Palpitations. Shortness of breath. GASTROINTESTINAL: No melena or abdominal pain. No GERD. Nausea. GENITOURINARY: No hematuria, no prostatism, no polyuria. CITY LETTER CARRIER: No blackout, Dizziness, Headache, no double vision. MUSCULOSKELETAL: Osteoarthritis pain, no joint swelling. ENDOCRINE: No weight loss, no weight gain. SKIN: Not dry, no rash. PSYCHIATRIC: Anxious, no depression, no suicidal thoughts, no homicidal thoughts. SOCIAL HISTORY: Marital Status: . Alcohol Usage: No. Tobacco Usage: No. FAMILY HISTORY: Father Mother living Brother 2 MEDICATIONS: Synthroid 88mcg Coumadin 4mg PO daily Atorvastatin 20mg PO daily Metoprolol 50mg twice a day Zanaflex 4mg PO Q 8 hours Duexis 800mg three times a day Trileptal 300mg three times a day [place] 5-325mg twice a day Ativan 1mg at bedtime Zoloft 50mg daily Pamelor 300mg PO at bedtime ALLERGIES: Lortab Demerol Lexapro Percocet Biaxin Cipro Topamax PHYSICAL EXAMINATION: V/S: Pulse 140, blood pressure 110/64, oxygen saturation 99.7. Height 5'6", BMI 32.2 and weight 199.6. GENERAL APPEARANCE: Oriented times three. HEENT: Normal. NECK: No JVP, no bruits. RESPIRATORY: Decreased breath sounds. CARDIOVASCULAR: S1, S2, no S3 Tachy, no murmurs. No cyanosis, clubbing. No ascites. GI/ABDOMEN: No tenderness. Bowel sounds are active. EXTREMITIES: edema, pulses +1, equal. CITY LETTER CARRIER: Deep tendon reflexes, sensory, motor and gait all normal. RECTAL: 2017 Dr. Schaefer repeat 7 years/PELVIC: Hysterectomy. Advised yearly. Mammogram 08/24 [facility]. . ASSESSMENT: 1. Tachycardia 2. Shortness of breath 3. B12 deficiency (noncompliant) 4. Depression/anxiety 5. Insomnia 6. Fibromyalgia/Pain Management 7. Palpitations, shortness of breath 8. Sinusitis 9. Left leg pain 10.History of fibromyalgia 11.7.6mm nodule right lobe, Dr. 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 Berry Ablation 19.Seizure disorder 20.TIA 21.Hypertension 22.Low back pain 23.Factor V Leiden Def 24.History of abnormal liver enzymes 25.Status post right wrist surgery, Dr. De La Torre PLAN: 1. Admit Observation 2. Routine telemetry 3. CBC and CMP now and daily 4. Accu-checks 5. Chest x-ray 6. Urinalysis 7. Normal saline IV at 100cc an hour 8. T4 TSH 9. Ativan 0.5mg now and three times a day 10.Zoloft 75mg PO daily 11.Metoprolol 50mg one now and continue twice a day 12.Discontinue Duexis 13.Continue home medications 14.Regular diet TIME SPENT: More than 70 minutes. MTDD
[2018-08-20] MEDS: VISTARIL INJ IM PRN (14:23)
[2018-08-20] MEDS: NORTRIPTYLINE HCL PO SCH (21:26)
[2018-08-21] MEDS: SYNTHROID PO SCH (05:35)
[2018-08-21] MEDS: SODIUM CHLORIDE 1,000 ML IV SCH ×2 (07:26→17:36)
[2018-08-21] MEDS: TRILEPTAL PO SCH ×3 (08:52→21:19)
[2018-08-21] MEDS: LOPRESSOR PO SCH ×2 (08:52→21:18)
[2018-08-21] MEDS: ASPIRIN EC PO SCH (08:53)
[2018-08-21] MEDS: ATIVAN PO SCH ×3 (08:53→21:18)
[2018-08-21] MEDS: LIPITOR PO SCH (08:53)
[2018-08-21] MEDS: CYMBALTA PO SCH (08:53)
[2018-08-21] MEDS: ZANAFLEX PO SCH ×2 (08:53→15:12)
[2018-08-21] MEDS: LOVENOX SUBCUT SCH (08:54)
[2018-08-21] MEDS: VISTARIL INJ IM PRN (10:24)
[2018-08-21] MEDS: NORTRIPTYLINE HCL PO SCH (22:56)
[2018-08-22] MEDS: ZANAFLEX PO SCH ×4 (00:23→23:10)
[2018-08-22] MEDS: SODIUM CHLORIDE 1,000 ML IV SCH ×3 (02:43→20:51)
[2018-08-22] MEDS: SYNTHROID PO SCH (06:23)
[2018-08-22] MEDS: LIPITOR PO SCH (09:41)
[2018-08-22] MEDS: ASPIRIN EC PO SCH (09:41)
[2018-08-22] MEDS: LOPRESSOR PO SCH ×2 (09:41→20:46)
[2018-08-22] MEDS: LOVENOX SUBCUT SCH (09:42)
[2018-08-22] MEDS: TRILEPTAL PO SCH ×3 (09:45→20:46)
[2018-08-22] MEDS: CYMBALTA PO SCH (09:45)
[2018-08-22] MEDS: ATIVAN PO SCH ×3 (09:46→20:46)
[2018-08-22] MEDS: TYLENOL PO PRN (11:57)
[2018-08-22] MEDS: VISTARIL INJ IM PRN (20:46)
[2018-08-22] MEDS: NORTRIPTYLINE HCL PO SCH (20:47)
[2018-08-23] MEDS: SODIUM CHLORIDE 1,000 ML IV SCH ×2 (06:31→08:28)
[2018-08-23] MEDS: ZANAFLEX PO SCH ×2 (06:44→14:20)
[2018-08-23] MEDS: SYNTHROID PO SCH (06:44)
[2018-08-23] MEDS: CYMBALTA PO SCH (08:27)
[2018-08-23] MEDS: ATIVAN PO SCH ×2 (08:28→14:21)
[2018-08-23] MEDS: TRILEPTAL PO SCH ×2 (08:28→14:20)
[2018-08-23] MEDS: ASPIRIN EC PO SCH (08:28)
[2018-08-23] MEDS: LOPRESSOR PO SCH (08:28)
[2018-08-23] MEDS: LIPITOR PO SCH (08:28)
[2018-08-23] MEDS: LOVENOX SUBCUT SCH (08:29)
--- NOTE | 2018-08-23 08:36 | ECHO2D ---
Date of Exam: 08/20/18 Ordering Physician: DR. GISELA HAAS Room #: 120 Reason for Echo: CHEST PAIN M-Mode Normal Adult Results LV Dimensions Normal Adult Results AoV Opening excursions >1.6 >1.6 LVEDD-base- 3.5-5.8 4.1 Ao root dimensions 2.0-3.7 3.4 LVESD-base- 3.1-4.6 L. Atrium dimensions 1.9-3.8 3.9 Post. Wall thickness 0.8-1.1 1.2 IV septum (thickness) 0.7-1.2 1.4 Post. Wall excursion 0.72-1.3 NORMAL Septal motion NORMAL Systolic motion R. Ventricular cavity 1.5-2.0 NORMAL LVEF 60% 71% Paradoxical septal wall motion NORMAL 2-D : 2-D M Mode Echocardiogram was performed using apical four chamber and left parasternal long and short axis views. Mitral, tricuspid and aortic valves appear to be normal. Contractility of the left ventricle seems to be normal, so is the cavity size. Left atrial cavity size and aortic root appear to be normal. There is no pericardial effusion. There is no thrombus noted in the left ventricular or left aortic cavity. No mitral valve prolapse noted. M-MODE: MV: NORMAL AV: NORMAL TV: NORMAL PV: CHAMBER SIZE: NORMAL WALL MOTION: NORMAL PERICARDIUM: NORMAL INTERPRETATION: 1. LEFT VENTRICULAR HYPERTROPHY 2. NORMAL VALVES 3. NORMAL LEFT VENTRICULAR CONTRACTILITY 4. NORMAL LEFT VENTRICLE AND LEFT ATRIAL SIZE MTDD
--- NOTE | 2018-08-23 10:58 | PCM.PROG ---
Attending Provider: ATTENDING PROVIDER: Dr. GISELA FERRELL This patient is seen with Evie Prieto, Nurse Practitioner. DATE OF SERVICE: 08/23/18 SUBJECTIVE: This 43 year old WHITE/ F was hospitalized 08/19/18. The patient is lying in bed resting comfortably. She is scheduled for MRI of brain and carotid scan today. An empty pill bottle was found in bag last night. Denies taking any other medication. REVIEW OF SYSTEMS: CONSTITUTIONAL: No night sweats. No fatigue, malaise, lethargy. No fever or chills. HEENT: Eyes: No visual changes. No eye pain. No eye discharge. ENT: No runny nose. No epistaxis. No sinus pain. No odynophagia. No congestion. RESPIRATORY: No cough, no congestion. No hemoptysis. No shortness of breath. CARDIOVASCULAR: Positive for tachycardia with exertion. No angina symptoms. No CHF symptoms. No atypical chest pain for CAD. No palpitations. No orthopnea. GASTROINTESTINAL: No abdominal pain. No nausea or vomiting. No diarrhea or constipation. No hematemesis. No hematochezia. GENITOURINARY: No urgency. No frequency. No dysuria. No hematuria. No obstructive symptoms. No discharge. No pain. No significant abnormal bleeding. MUSCULOSKELETAL: No musculoskeletal pain; no joint swelling. NEUROLOGICAL: Awake, alert, oriented to time, place and person. No headache. No neck pain. No syncope. No seizures. No dizziness. PSYCHIATRIC: Not anxious. No depression. No suicidal thoughts. No homicidal thoughts. SKIN: No rash. No lesions. No wounds. ENDOCRINE: No unexplained weight loss. No weight gain. HEMATOLOGIC/LYMPHATIC: No anemia. No purpura. No petechiae. No prolonged or excessive bleeding. No palpable lymph nodes. PHYSICAL EXAMINATION: GENERAL: The patient is awake, alert and oriented, lying/sitting in bed in no distress. VITAL SIGNS: Temperature 98.1 F, Pulse 100, Respiratory Rate 18, BP 140/82, Pulse Ox 100% HEENT: Head normocephalic, atraumatic. Eyes: Extraocular muscles are intact. Pupils are equal, round and reactive to light and accommodation. Ears: No lesions. Nose appeared normal. Throat: No exudate or erythema. NECK: Supple. No JVD, no carotid bruit. No lymphadenopathy or thyromegaly. LUNGS: Clear to auscultation. Percussion note normal. Chest symmetrical. HEART: S1, S2, no S3. No murmurs. No cyanosis or clubbing. No ascites. Pulses: Dorsalis pedis and posterior tibial pulses +1 to +2 both sides. ABDOMEN: Soft. Non-tender. Bowel sounds active. No CVA tenderness. No mass felt. EXTREMITIES: No edema. Full range of motion of all extremities, equal. NEUROLOGIC: No focal deficit. Cranial nerves II through XII are grossly intact. No headache, no double vision or headache. SKIN: Not dry. Intact. Turgor-normal. LYMPHATIC: No palpable lymph nodes/no lymphedema. MUSCULOSKELETAL: Normal joints with no swelling. Muscle tone is normal. LAB REVIEW: 08/23/18 04:49 08/23/18 04:49 08/23/18 04:49: PT 9.1 L, INR 0.91 08/23/18 04:49: Sodium 136.6, Potassium 4.10, Chloride 103.0, Carbon Dioxide 25.4, Anion Gap 12.30, BUN 7.9, Creatinine 0.79, Estimated GFR (MDRD) 80.00, BUN /Creatinine Ratio 10.00, Glucose 99.9, Calcium 8.67, Total Bilirubin 0.37, AST 41.2 H, ALT 44.7 H, Alkaline Phosphatase 96.9, Total Protein 6.13 L, Albumin 3.79, Globulin 2.34, Albumin/Globulin Ratio 1.61 08/23/18 04:49: WBC 7.55, RBC 4.35, Hgb 12.6, Hct 37.4, MCV 86.0, MCH 29.0, MCHC 33.7, RDW Coeff of Sharee 12.9, Plt Count 212, Immature Gran % (Auto) 0.3, Neut % (Auto) 58.8, Lymph % (Auto) 30.9, [place] % (Auto) 7.5, Eos % (Auto) 2.0, Baso % (Auto) 0.5, Immature Gran # (Auto) 0.0, Neut # (Auto) 4.4, Lymph # (Auto ) 2.3, [place] # (Auto) 0.6, Eos # (Auto) 0.2, Baso # (Auto) 0.0 08/22/18 12:45: PT 9.4, INR 0.94 ASSESSMENT: 1. Tachycardia with exertion. Periods of sinus tachycardia on walking which is probably related to sedentary lifestyle and anxiety 2. Shortness of breath likely cause is sedentary lifestyle and anxiety. PE has been ruled out. CT chest angiogram is negative and Venous scan is negative for DVT 3. Obese, she has been going to the gym for last 4 weeks. 4. She is being treated for chronic back pain by Dr. Niño with ablation to the lumbar spine. Last ablation was 5 days ago, the next will be 4 days from now. The patient is off Coumadin. This is on hold for the next procedure. PLAN: 1. D/C home. 2. Holter monitor at discharge. 3. D/C fluids. 4. UA. 5. Ultrasound of carotids. 6. MRI of brain. 7. The patient is noncompliant with medications, diet, lifestyle and followup. Plan and coordination of the patient's care discussed in the presence of Medicare Contact Specialist and nurse. CONDITION: Stable SCRIBED BY: Mariangel GRAHAM scribed while in presence of service performed by Dr. Ferrell/Evie Prieto APRN on 08/23/18 (0801)
--- NOTE | 2018-08-23 11:33 | US ---
EXAM: Bilateral carotid artery Doppler History: Supraventricular tachycardia Technique: Multiple sonographic images through the bilateral internal carotid arteries were obtained . Color duplex Doppler was used to interrogate vascular flow. Findings: The right ICA peak systolic velocity is within normal limits measuring 77 cm/sec. The right ICA/cca PSV ratio is normal at 0.90. The right vertebral artery is patent and demonstrates antegrade flow. Henson scale images demonstrate no significant plaque buildup within the right internal carotid artery. The left ICA peak systolic velocity is within normal limits measuring 59 cm/sec. The left ICA/cca PS V ratio is normal at 0.80. The left vertebral artery is patent and demonstrates antegrade flow. Gra y scale images demonstrate no significant plaque buildup within the left internal carotid artery. Impression: No significant hemodynamic stenosis of the bilateral internal carotid arteries
[2018-08-23] MEDS ORDERED: VALIUM PO ONE (12:00)
--- NOTE | 2018-08-23 13:51 | MRI ---
MRI the brain without contrast . HISTORY: Memory problems. COMPARISON: None of this type. CT 05/03/2015. PROCEDURE: Multiplanar, multisequence imaging the brain performed without contrast. FINDINGS: The CSF spaces, including the ventricles, sulci and cisterns and surrounding meninges demo nstrate no evidence of abnormal extra-axial fluid collections or hematomas or meningeal based lesions . The cerebral hemispheres demonstrate no mass or mass effect or acute hemorrhage or infarct. The periventricular and Centrum semiovale white matter demonstrates no evidence of significant white mat ter disease for age. The major vascular structures at the level of the [place], including the internal carotid and basilar arteries and their major branches demonstrate detectable flow voids and grossly normal anatomy at the present level of resolution. The major posterior fossa structures including the cerebellar hemispheres and vermis appear normal for age. The brainstem appears normal . The petrous pyramids and mastoid air cells demonstrate fluid signal on the right. The seventh a nd eighth nerve complexes, IACs and visualized inner ear structures are symmetric and normal in appea ruth at standard resolution ( no high resolution images are included ).. The cervicomedullary junc tion and region of the foramen magnum demonstrate no evidence of tonsillar ectopy or Chiari malformat ion. The region of the sella turcica and contained pituitary gland demonstrates no intra or supra s ellar mass or mass effect. The pituitary gland appears normal in size. The orbits and orbital con tents appear symmetric and within normal limits. The paranasal sinuses appear normally developed an d aerated. IMPRESSION: 1. The noncontrast enhanced MRI examination demonstrates normal, age appropriate cerebral and cerebe llar anatomy. 2. There is no evidence of intracerebral mass, mass effect, acute hemorrhage or acute infarct. 3. The periventricular centrum semiovale white matter is within normal limits for age. 4. Additional details are contained in the report.
[2018-08-23 13:54] VITALS: BP 143/94; TEMP 98.5
[2018-08-23] MEDS: TYLENOL PO PRN (14:20)
--- NOTE | 2018-08-23 15:27 | CM.DICTOOL ---
ADMISSION: 08/19/18 12:39 DISCHARGE: AUGUST 23, 2018 DATE OF SERVICE: 08/23/18 FINAL DIAGNOSIS TACHYCARDIA WITH EXERTION SHORTNESS OF BREATH HYPERTENSION TIA, 2010 SVT WITH ABLATION (DR. BRAVO), 2010 FACTOR 5 AND 8 CLOTTING DISORDER B12 DEFICIENCY DEPRESSION ANXIETY FIBROMYALGIA (PAIN MANAGEMENT) SINUSITIS NODULE, RIGHT LOBE (DR. REAL) OSTEOARTHRITIS DJD SPINE FATTY LIVER GENERALIZED ANXIETY DISORDER HYPOTHYROID SEIZURE DISORDER NON COMPLIANT WITH MEDS, FOLLOW UP, DIET, LIFESTYLE CHOLECYSTECTOMY APPENDECTOMY HYSTERECTOMY CERVICAL FUSION, 2010 AND 2013 STRESS ECHO 2018: NO ISCHEMIA ECHOCARDIOGRAM: AUGUST 2018 LVEF 71%. LVH NORMAL LEFT VENTRICULAR CONTRACTILITY NORMAL LEFT VENTRICULAR AND LEFT ATRIAL SIZE NON SMOKER LAST VITALS Temp Pulse Resp BP Pulse Ox 98.1 F 85 20 123/83 98 08/23/18 09:51 08/23/18 09:51 08/23/18 09:51 08/23/18 09:51 08/23/18 09:51 TAKE THESE MEDICATIONS AT HOME Hydrocodone Bitart/Acetaminophen ([place] 5-325) 1 tab PO BID PRN PRN Reason: Pain Atorvastatin Calcium (Lipitor) 20 mg PO DAILY [facility] Last Admin: 08/23/18 08:28 Dose: 20 mg Duloxetine HCl (Cymbalta) 60 mg PO DAILY [facility] Last Admin: 08/23/18 08:27 Dose: 60 mg Levothyroxine Sodium (Synthroid) 88 mcg PO QDAC [facility] Last Admin: 08/23/18 06:44 Dose: 88 mcg Lorazepam (Ativan) 0.5 mg PO BID [facility] Last Admin: 08/23/18 08:28 Dose: 0.5 mg Metoprolol Tartrate (Lopressor) 50 mg PO BID [facility] Last Admin: 08/23/18 08:28 Dose: 50 mg Non-Formulary Medication (Nortriptyline Hcl [Pamelor]) 300 mg PO BEDTIME [facility] Last Admin: 08/22/18 20:47 Dose: Not Given Oxcarbazepine (Trileptal) 300 mg PO TID [facility] Last Admin: 08/23/18 08:28 Dose: 300 mg Tizanidine HCl (Zanaflex) 4 mg PO Q8H [facility] Last Admin: 08/23/18 06:44 Dose: 4 mg RESUME COUMADIN 4 MG PO DAILY TOMORROW 08/24 AFTER APPOINTMENT AT PAIN MANAGEMENT WITH DR. ACOSTA ALLERGIES ciprofloxacin [From Cipro] Adverse Reaction (Verified 05/12/18 20:08) clarithromycin [From Biaxin] Adverse Reaction (Verified 05/12/18 20:08) meperidine HCl [From Demerol] Adverse Reaction (Verified 05/12/18 20:08) oxycodone Adverse Reaction (Verified 05/12/18 20:08) DISCONTINUED MEDICATIONS DUEXIS 800-26.6 MG PO TID PRN NEW PRESCRIPTIONS: ATIVAN 1 MG BY MOUTH TWICE A DAY SMOKING: NON SMOKER DISEASE SPECIFIC EDUCATION: TACHYCARDIA SHORTNESS OF AIR COUMADIN THERAPY OUTPATIENT HOLTER MONITOR FOLLOW UP APPOINTMENT NON COMPLIANCE LAB REVIEW: 08/23/18 04:49 08/23/18 04:49 08/23/18 09:40: Urine Opiates Screen Negative, Ur Oxycodone Screen Negative, Urine Methadone Screen Negative, Ur Propoxyphene Screen Negative, Ur Barbiturates Screen Negative, U Tricyclic Antidepress Positive, Ur Phencyclidine Scrn Negative, Ur Amphetamine Screen Negative, U Methamphetamines Scrn Negative, U Benzodiazepines Scrn Positive, Urine Cocaine Screen Negative, U Cannabinoids Screen Negative 08/23/18 04:49: PT 9.1 L, INR 0.91 08/23/18 04:49: Sodium 136.6, Potassium 4.10, Chloride 103.0, Carbon Dioxide 25.4, Anion Gap 12.30, BUN 7.9, Creatinine 0.79, Estimated GFR (MDRD) 80.00, BUN /Creatinine Ratio 10.00, Glucose 99.9, Calcium 8.67, Total Bilirubin 0.37, AST 41.2 H, ALT 44.7 H, Alkaline Phosphatase 96.9, Total Protein 6.13 L, Albumin 3.79, Globulin 2.34, Albumin/Globulin Ratio 1.61 08/23/18 04:49: WBC 7.55, RBC 4.35, Hgb 12.6, Hct 37.4, MCV 86.0, MCH 29.0, MCHC 33.7, RDW Coeff of Sharee 12.9, Plt Count 212, Immature Gran % (Auto) 0.3, Neut % (Auto) 58.8, Lymph % (Auto) 30.9, [place] % (Auto) 7.5, Eos % (Auto) 2.0, Baso % (Auto) 0.5, Immature Gran # (Auto) 0.0, Neut # (Auto) 4.4, Lymph # (Auto ) 2.3, [place] # (Auto) 0.6, Eos # (Auto) 0.2, Baso # (Auto) 0.0 08/22/18 12:45: PT 9.4, INR 0.94 PLAN: DISCHARGE HOME TODAY August DIET: REGULAR ACTIVITY: RESUME NORMAL ACTIVITY, UP TOLERATED RETURN TO OUTPATIENT REGISTRATION WITH YOUR OUTPATIENT ORDER ON ThursdayAugust TO HAVE A 24 HOUR HOLTER MONITOR PLACED. FOLLOW UP WITH DR. HAAS/ARCHIE LAMBERT APRN ON ThursdayAugust AT 1045. PLEASE CALL TO RESCHEDULE IF UNABLE TO KEEP APPOINTMENT. [phone]. FULL CODE ALERT, ORIENTED X3. MRS. BASS IS AGREEABLE WITH DISCHARGE HOME TODAY. SHE IS INDEPENDENT WITH ALL ACTIVITIES OF DAILY LIVING. DOES NOT REQUIRE THE USE OF ASSISTIVE DEVICE FOR AMBULATION. APPETITE HAS BEEN GOOD WITH MEAL INTAKE 75%-100 %. HYDRATION STATUS IS ADEQUATE. NO C/O OF N/V. HAS NOT C/O HEADACHE TODAY. GISELA HAAS M.D. ARCHIE LAMBERT APRN
--- NOTE | 2018-08-27 10:01 | DS ---
DATE OF SERVICE: 08/23/18 FINAL DIAGNOSIS: 1. TACHYCARDIA WITH EXERTION 2. SHORTNESS OF BREATH 3. HYPERTENSION 4. TIA, 2010 5. SVT WITH ABLATION (DR. BERRY), 2010 6. FACTOR 5 AND 8 CLOTTING DISORDER 7. B12 DEFICIENCY 8. DEPRESSION 9. ANXIETY 10. FIBROMYALGIA (PAIN MANAGEMENT) 11. SINUSITIS 12. NODULE, RIGHT LOBE (DR. REAL) 13. OSTEOARTHRITIS 14, DJD SPINE 15. FATTY LIVER 16. GENERALIZED ANXIETY DISORDER 17. HYPOTHYROID 18. SEIZURE DISORDER 19. NON COMPLIANT WITH MEDS, FOLLOW UP, DIET, LIFESTYLE 20. CHOLECYSTECTOMY 21. APPENDECTOMY 22. HYSTERECTOMY 23. CERVICAL FUSION, 2010 AND 2013 24. NONSMOKER STRESS ECHO 2018: NO ISCHEMIA ECHOCARDIOGRAM: AUGUST 2018 LVEF 71%. LVH NORMAL LEFT VENTRICULAR CONTRACTILITY NORMAL LEFT VENTRICULAR AND LEFT ATRIAL SIZE LAST VITAL SIGNS: 08/23/18 @ 0951: Temperature 98.1, pulse 85, respiratory rate 20, BP 123/83, pulse ox 98. DISCHARGE INSTRUCTIONS: 1. DISCHARGE HOME TODAY, AUGUST 23, 2018. 2. RETURN TO OUTPATIENT REGISTRATION WITH YOUR OUTPATIENT ORDER ON ThursdayAugust TO HAVE A 24 HOUR HOLTER MONITOR PLACED. 3. FOLLOW UP WITH DR. HAAS/ARCHIE LAMBERT APRN ON ThursdayAugust AT 1045. PLEASE CALL TO RESCHEDULE IF UNABLE TO KEEP APPOINTMENT. [phone]. MEDICATIONS AT DISCHARGE: Hydrocodone Bitart/Acetaminophen ([place] 5-325) 1 tab PO BID PRN PRN Reason: Pain Atorvastatin Calcium (Lipitor) 20 mg PO DAILY [facility] Last Admin: 08/23/18 08:28 Dose: 20 mg Duloxetine HCl (Cymbalta) 60 mg PO DAILY [facility] Last Admin: 08/23/18 08:27 Dose: 60 mg Levothyroxine Sodium (Synthroid) 88 mcg PO QDAC [facility] Last Admin: 08/23/18 06:44 Dose: 88 mcg Lorazepam (Ativan) 0.5 mg PO BID [facility] Last Admin: 08/23/18 08:28 Dose: 0.5 mg Metoprolol Tartrate (Lopressor) 50 mg PO BID [facility] Last Admin: 08/23/18 08:28 Dose: 50 mg Non-Formulary Medication (Nortriptyline Hcl ) 300 mg PO BEDTIME [facility] Last Admin: 08/22/18 20:47 Dose: Not Given Oxcarbazepine (Trileptal) 300 mg PO TID [facility] Last Admin: 08/23/18 08:28 Dose: 300 mg Tizanidine HCl (Zanaflex) 4 mg PO Q8H [facility] Last Admin: 08/23/18 06:44 Dose: 4 mg RESUME COUMADIN 4 MG PO DAILY TOMORROW 08/24 AFTER APPOINTMENT AT PAIN MANAGEMENT WITH DR. ACOSTA NEW PRESCRIPTIONS: ATIVAN 1 MG BY MOUTH TWICE A DAY DISCONTINUED MEDICATIONS: DUEX[place] 800-26.6 MG PO TID PRN DIET INSTRUCTIONS: REGULAR ACTIVITY: RESUME NORMAL ACTIVITY, UP TOLERATED SMOKING: NONSMOKER DISEASE SPECIFIC EDUCATION: TACHYCARDIA SHORTNESS OF AIR COUMADIN THERAPY OUTPATIENT HOLTER MONITOR FOLLOW UP APPOINTMENT NON COMPLIANCE HOSPITAL COURSE: This is a white female with a history of SVT, who was admitted from our office with tachycardia, shortness of breath and weakness. She had an ablation back in 2010, hospitalized in March with tachycardia. She saw Dr. Berry again this year and her heart rate was controlled with Metoprolol, related more to stress and anxiety. She has been in her office with increasing stress and anxiety. We have tried multiple anziety medications and antidepressants. In the office she was extremely tachycardic. Heart rate into the 130s, worse with exertion. She was short of breath, dizzy, weak, nauseated her, admitted her, placed her on routine telemetry orders, gave IV fluids at 100 cc's/hr. She was monitored at rest with Metoprolol. Heart rate would improve into the 60s and 70s with any sort of exertion. Heart rate wound increase up to 130. She did have shortness of breath with this. We increased her Ativan to 1 mg t.i.d. [facility]. This seemed to improve although she still remains tachycardic with exertion.. Blood pressure remained stable. Drug screen was negative. I do believe that this is likely due to increased stress and anxiety. We have ordered a 24 hour Holter to be done on Thursday as an outpatient. Labs have all been stable. BUN was slightly elevated on admission due to mild dehydration. She has an appointment with us next week. T4, TSH were normal. She does have a history of noncompliance. She does have chronic pain due to fibromyalgia along with degenerative joint disease of the spine. She had an MRI of the brain today which was negative. She also had a carotid scan which was also normal. She does not smoke. We have advised to discontinue all caffeine. Will discharge her in stable condition. Followup with her next week. TIME SPENT: More than 60 minutes. VENKATESH
--- NOTE | 2018-08-27 11:59 | PN ---
DATE OF SERVICE: 08/21/18 SUBJECTIVE: 43-year-old white female hospitalized with sinus tachycardia, shortness of breath. The patient's condition is improving. She is still laying around, sedentary lifestyle. The patient is strongly advised to get up and walk around. She has sinus tachycardia when she walks around but at rest her pulse goes down to 60 to 70 per minute. Blood pressure is 150/90 borderline. REVIEW OF SYSTEMS: CONSTITUTIONAL: No night sweats. No fatigue, malaise, lethargy. No fever or chills. HEENT: Eyes: No visual changes. No eye pain. No eye discharge. ENT: No runny nose. No epistaxis. No sinus pain. No sore throat. No odynophagia. No congestion. RESPIRATORY: No cough, no congestion. No hemoptysis. No shortness of breath. CARDIOVASCULAR: No angina symptoms. No CHF symptoms. No atypical chest pain for CAD. No palpitations. No PND. No orthopnea. GASTROINTESTINAL: No abdominal pain. No nausea or vomiting. No diarrhea or constipation. No hematemesis. No hematochezia. GENITOURINARY: No urgency. No frequency. No dysuria. No hematuria. No obstructive symptoms. No discharge. No pain. No significant abnormal bleeding. MUSCULOSKELETAL: Mild aches and pains, generalized consistent with fibromyalgia. NEUROLOGICAL: No headache. No neck pain. No syncope. No seizures. No dizziness. PSYCHIATRIC: Anxiety. No depression. No suicidal thoughts. No homicidal thoughts. SKIN: No rash. No lesions. No wounds. ENDOCRINE: No unexplained weight loss. No weight gain. HEMATOLOGIC/LYMPHATIC: No anemia. No purpura. No petechiae. No prolonged or excessive bleeding. No palpable lymph nodes. PHYSICAL EXAMINATION: VITAL SIGNS: Temperature 98.4, pulse 70, respiratory rate 24, BP 150/90, pulse ox 98%. HEENT: Head normocephalic, atraumatic. Eyes: Extraocular muscles are intact. Pupils are equal, round and reactive to light and accommodation. Ears: No lesions. Nose appeared normal. Throat: No exudate or erythema. NECK: Supple. No JVD, no carotid bruit. No lymphadenopathy or thyromegaly. LUNGS: Decreaed breath sounds but clear. Percussion note normal. Chest symmetrical. HEART: S1, S2, no S3. No murmurs. No cyanosis or clubbing. No ascites. Pulses: Dorsalis pedis and posterior tibial pulses +1 to +2 bilaterally. ABDOMEN: Soft. Nontender. Bowel sounds active. No CVA tenderness. No mass felt. EXTREMITIES: No edema. Full range of motion of all extremities, equal. NEUROLOGIC: No focal deficit. Cranial nerves II through XII are grossly intact. No headache, no double vision or headache. SKIN: Not dry. Intact. Turgor - normal. LYMPHATIC: No palpable lymph nodes/no lymphedema. MUSCULOSKELETAL: Normal joints with no swelling. Muscle tone is normal. LABS: Hemoglobin 13.2, hematocrit 38, WBC 6,600, normal differential. Creatinine 0.7, BUN 9, potassium 3.9. ASSESSMENT: 1. SINUS TACHYCARDIA SEEMS TO BE RELATED TO SEDENTARY LIFESTYLE AND POSTURAL CHANGES. NOTHING ELSE WAS FOUND SO FAR. THE PATIENT'S CT SCAN OF THE CHEST WITH CT ANGIOGRAM WAS NEGATIVE. NO EVIDENCE OF PULMONARY EMBOLISM. TSH IS NORMAL. 2. THE PATIENT IS MILDLY DEPRESSED BUT NO SUICIDAL OR HOMICIDAL TENDENCIES. SHE IS JUST UNHAPPY BECAUSE THE DISABILITY HAS BEEN DENIED. SHE IS GOING TO APPEAL IT. PLAN: 1. The patient is strongly advised vigorous exercises. CONDITION: Stable. TIME SPENT: More than 30 minutes. Plan and coordination of the patient's care discussed in the presence of nurse. VENKATESH
--- NOTE | 2018-08-27 12:54 | PN ---
DATE OF SERVICE: 08/22/18 SUBJECTIVE: 43-year-old white female hospitalized with sinus tachycardia. The patient is still feeling fatigued. No sinus tachycardia noted at rest. In fact, her heart rate is 70/min with walking to the bathroom and with little exertion her heart rate goes up to 120 which is from sedentary lifestyle. The patient says that she is forgetful and is foggy in mental status at times. The patient still sleeps, declined getting up and walking around. Her INR was 0.93. PHYSICAL EXAMINATION: VITAL SIGNS: Temperature 97.7, pulse 76, respiratory rate 18, blood pressure 150/90, pulse ox 97%. HEENT: Head normocephalic, atraumatic. Eyes: Extraocular muscles are intact. Pupils are equal, round and reactive to light and accommodation. Ears: No lesions. Nose appeared normal. Throat: No exudate or erythema. NECK: Supple. No JVD, no carotid bruit. No lymphadenopathy or thyromegaly. LUNGS: Clear to auscultation. Percussion note normal. Chest symmetrical. HEART: S1, S2, no S3. No murmurs. No cyanosis or clubbing. No ascites. Pulses: Dorsalis pedis and posterior tibial pulses +1 to +2 bilaterally. ABDOMEN: Soft. Nontender. Bowel sounds active. No CVA tenderness. No mass felt. EXTREMITIES: No edema. Full range of motion of all extremities, equal. NEUROLOGIC: No focal deficit. Cranial nerves II through XII are grossly intact. No headache, no double vision or headache. SKIN: Not dry. Intact. Turgor - normal. LYMPHATIC: No palpable lymph nodes/no lymphedema. MUSCULOSKELETAL: Normal joints with no swelling. Muscle tone is normal. LABS: Hemoglobin 12.9, hematocrit 38, WBC 7,500, normal differential. Creatinine 0.7, BUN 8.8. PLAN: Will do MRI of the brain with contrast tomorrow along with carotid scan because of the patient's forgetfulness. Again, the patient is strongly advised to take medications on a regular basis and exercise. So far we haven't found any reason why the patient should be short of breath other than sedentary lifestyle. Her sinus tachycardia with minimal exertion is secondary to her completely being out of condition. TIME SPENT: More than 30 minutes. Plan and coordination of the patient's care discussed in the presence of nurse. VENKATESH
== END 2018-08-23 15:49 | disposition home or self-care (01) ==
LOC: MEDSURG B 12:39
PROVIDERS: ADMIT Internal Medicine; ATTEND Internal Medicine
DX: R00.0 Tachycardia, unspecified (principal); R06.02 Shortness of breath; I10 Essential (primary) hypertension; F41.8 Other specified anxiety disorders; J32.9 Chronic sinusitis, unspecified; M79.7 Fibromyalgia; M19.90 Unspecified osteoarthritis, unspecified site; M47.9 Spondylosis, unspecified; E53.8 Deficiency of other specified B group vitamins; G47.00 Insomnia, unspecified; E03.9 Hypothyroidism, unspecified; G40.909 Epilepsy, unspecified, not intractable, without status epilepticus; M79.662 Pain in left lower leg; Z86.73 Personal history of transient ischemic attack (TIA), and cerebral infarction without residual deficits
CPT/HCPCS: 36415; 80053; 80306; 81001; 82550; 84439; 84443; 84484; 85025; 85610; 93005; 93010

== ENCOUNTER 2018-08-25 09:01 | Outpatient (CLI) ==
--- NOTE | 2018-08-27 10:50 | HOLTER ---
PATIENT INFORMATION AND COMMENTS Attending Physician: Dr. GISELA HAAS Indications: SHORT OF BREATH, TACHYCARDIA WITH EXERTION __ Patient Medications: TRILEPTAL, LEVOTHYROXINE, COUMADIN, ZANAFLEX, ATORVASTATIN , METOPROLOL, NORCO, [place], PAMELOR, ATIVAN, CYMBALTA __ Pre-procedure Summary: Protocol: Standard Heart Rate Started: 08/25/18921 Minimum: 71 BPM Weight: 199 LBS Ended: 08/26/18921 Maximum: 168 BPM Height: 66" Duration: 24 HRS Average: 99 BPM _ INTERPRETATIONS/OBSERVATIONS: 1. BASIC RHYTHM: SINUS, RATE 70 BPM TO 160 BPM, AVERAGE 100 BPM 2. INFREQUENT PAC'S, RARE PVC'S 3. NO ST-T WAVE CHANGES FROM BASELINE 4. ACTIVITY LOG, NO CORRELATION MTDD
== END 2018-08-25 09:02 | disposition home or self-care (01) ==
LOC: CAR 09:01
PROVIDERS: ATTEND Internal Medicine
DX: R00.0 Tachycardia, unspecified (principal)
CPT/HCPCS: 93227